=== PATIENT | female | born 1985 | race Caucasian/White ===

== ENCOUNTER 2019-12-11 22:52 | Emergency (ER) | payer OTHER, SELFPAY ==
--- NOTE | ~2019-12-11 | XR_ITS ---
EXAMINATION: XR chest 2V DATE: 12/12/2019 01:49 INDICATION: Midline chest pain TECHNIQUE: PA and lateral views of the chest were obtained. COMPARISON: Chest radiograph dated 05/11/2016 FINDINGS: The lungs remain clear with no focal airspace opacities, pulmonary edema, pleural effusion or pneumot horax. The cardiomediastinal silhouette is normal. Visualized bones and soft tissues are unremarkable . IMPRESSION: 1. No acute cardiopulmonary disease. Reviewed, dictated and finalized at location A.
--- NOTE | ~2019-12-11 | CT_ITS ---
EXAMINATION: CT abdomen pelvis w con DATE: 12/12/2019 01:46 INDICATION: Severe epigastric pain TECHNIQUE: Computed tomography (CT) of the abdomen and pelvis was performed with 100 cc Omnipaque 350 intravenous contrast. The dose-length product was 552.89 mGy-cm. Automated exposure control and iter ative reconstruction technique were employed. COMPARISON: None. FINDINGS: Heart size is normal. No significant pleural or pericardial effusion. No significant vascul ar abnormality. There is questionable stranding along the inferior aspect of the gallbladder. No definite stones or g allbladder wall thickening. The liver, spleen, pancreas, adrenal glands and kidneys are unremarkable. Nonobstructive bowel gas pa ttern. Normal appendix. No evidence for diverticulitis. No free air or free fluid. No acute osseous a bnormality. IMPRESSION: 1. Possible subtle pericholecystic stranding/inflammation. No radiopaque stones. Consider further jazlyn luation with ultrasound as clinically warranted. Reviewed, dictated and finalized at location A. IMPRESSION: 1. Possible subtle pericholecystic stranding/inflammation. No radiopaque stones . Consider further evaluation with ultrasound as clinically warranted.
--- NOTE | 2019-12-11 22:55 | ECG_ITS ---
Measurements Intervals [place] Rate: 98 P: 44 WY: 172 QRS: 16 QRSD: 92 T: 61 QT: 362 QTc: 464 Interpretive Statements SINUS RHYTHM BASELINE ARTIFACT- I, II, III, AVF NORMAL ECG Electronically Signed On 12-12-2019 7:07:07 CDT by Chalino Hutton D.O.
--- NOTE | 2019-12-11 22:55 | ED.CHESTPAIN ---
HPI - Chest Pain General Chief Complaint: Chest Pain Stated Complaint: chest pain Time Seen by Provider: 12/11/19 22:54 Source: patient Mode of arrival: ambulatory Limitations: no limitations History of Present Illness HPI narrative: Patient is a 34-year-old female who presents for evaluation of epigastric pain. Patient reports onset of epigastric pain earlier this evening. Patient reports it is a sharp, pressure in the epigastrium with radiation to the middle back. Patient reports some mild right upper quadrant pain. She reports nausea without vomiting. Patient reports similar episode of pain earlier this week for which patient received a work-up at [facility] which was negative and patient was sent home. Patient with history of acid reflux attacks as a child, but states this been many years since she has had any problems. No diaphoresis or shortness of breath. No smoking history, no history of sudden cardiac in the family or history of PR at a young age. Related Data Allergies Allergy/AdvReac Type Severity Reaction Status Date / Time No Known Allergies Allergy Unverified 05/11/16 08:41 Review of Systems Review of Systems: Narrative: CONSTITUTIONAL: Denies fever, chills, or sweats. CARDIOVASCULAR: Reports chest pain, denies palpitations RESPIRATORY: Denies cough or dyspnea. GASTROINTESTINAL: Reports epigastric pain, nausea and vomiting GENITOURINARY: Denies dysuria or hematuria. SKIN: Denies rash or itching. MUSCULOSKELETAL: Denies back pain, joint pain, or myalgia. NEUROLOGIC: Denies headache, numbness, or weakness. [facility] Past Medical History Medical History (Updated 12/12/19 @ 02:44 by Simran Chapa MD) Acid reflux Surgical History Surgical History (Updated 12/11/19 @ 23:09 by Simran Chapa MD) No pertinent past surgical history Social History Social History (Updated 12/11/19 @ 23:09 by Simran Chapa MD) Smoking status: Never smoker Alcohol intake: never Substance use: never Gender identity (if verbalized by the patient): Female Exam Narrative: Exam Narrative: GENERAL: Awake, alert, conversant, tearful, uncomfortable appearing HEAD: Normocephalic, atraumatic. EYES: PERRLA and EOMI. ENT: Nares clear, no rhinorrhea or epistaxis. Mucous membranes moist. NECK: Supple. CHEST: No respiratory distress, breathing even and non labored HEART: Tachycardic rate, sinus rhythm ABDOMEN:Non distended, tender in the epigastrium, no rebound, no guarding, mild right upper quadrant tenderness EXTREMITIES: Normal range of motion. No edema. SKIN: Warm, dry, no rash. NEURO:No focal deficits. Alert and oriented x3 Course Vital Signs Vital signs: Vital Signs Temperature 36.7 C 12/11/19 22:58 Pulse Rate 100 12/11/19 22:58 Respiratory Rate 16 12/11/19 22:58 Blood Pressure 133/97 H 12/11/19 22:58 Pulse Oximetry 100 12/11/19 22:58 Temperature 36.7 C 12/11/19 22:58 Pulse Rate 100 12/11/19 22:58 Respiratory Rate 16 12/11/19 22:58 Blood Pressure 133/97 H 12/11/19 22:58 Pulse Oximetry 100 12/11/19 22:58 MDM - Chest Pain MDM Narrative Medical decision making narrative: Patient presented to the emergency department for evaluation of recurrent epigastric pain. At the time of initial assessment, pain is reproducible in the epigastrium, mild right upper quadrant pain. Laboratory results show no severe leukocytosis, mild elevation in AST without hyperbilirubinemia or elevation in alkaline phosphatase. Patient declined morphine, symptoms resolved with a GI cocktail. CT scan with possible concern for gallbladder etiology, there does not appear to be signs of acute cholecystitis, no stranding or evidence of obstructive process on imaging. I explained to patient that she may want to pursue consultation with general surgery for possible gallbladder removal, symptoms may be related to biliary colic. Patient was advised to return should her symptoms
[2019-12-11 22:58] VITALS: BP 133/97; PULSE 100; RESP 16; TEMP 36.7; O2SAT 100
[2019-12-11 23:12] LABS: Basophils Percent Auto 0.3 % (0.2-1.2); Eosinophils Absolute Auto 0.1 K/mm3 (0-0.3); Eosinophils Percent Auto 1.2 % (0-4.4); Hematocrit 41.4 % (37.0-47.0); Hemoglobin 14.1 g/dL (12.0-15.0); Immature Granulocyte Absolute 0.01 K/mm3 (0.00-0.031); Immature Granulocyte Percent A 0.1 % (0-0.5); Lymphocytes Absolute Auto 3.84 K/mm3 (0.9-3.2); Lymphocytes Percent Auto 51.5 % (18.3-44.2); Mean Corpuscular HGB Conc 34.1 g/dl (32-36); Mean Corpuscular Hemoglobin 32.1 pg (26-34); Mean Corpuscular Volume 94.3 fl (80-100); Mean Platelet Volume 9.6 fl (7.4-10.4); Monocytes Absolute Auto 0.4 K/mm3 (0.1-0.6); Monocytes Percent Auto 5.5 % (2.6-8.5); Neutrophils Absolute Auto 3.1 K/mm3 (1.3-6.7); Neutrophils Percent Auto 41.4 % (45.5-73.1); Platelet Count Result 279 k/mm3 (150-375); Red Blood Count 4.39 M/mm3 (4.2-5.4); Red Cell Distribution Width 12.2 % (11.5-14.5); White Blood Count 7.5 K/mm3 (4.5-10.0)
[2019-12-11 23:26] LABS: Alanine Aminotransferase 27 U/L (4-35); Alkaline Phosphatase 58 U/L (38-126); Aspartate Amino Transferase 48 U/L (14-36); Bilirubin,Total 0.9 mg/dL (0.2-1.3); Blood Urea Nitrogen 14 mg/dL (7-17); Calcium 9.2 mg/dL (8.4-10.2); Carbon Dioxide 24 mmol/L (22-30); Chloride 102 mmol/L (98-107); Estimated Glomerular Filt Rate > 60; Glucose 121 mg/dL (65-105); Lipase 274 U/L (23-300); Potassium 3.3 mmol/L (3.4-5.0); Prothrombin Time 13.1 Seconds (11.1-14.7); Sodium 136 mmol/L (137-145)
[2019-12-11 23:27] LABS: Partial Thromboplastin Time 23.8 SECONDS (22.3-36.8)
[2019-12-11 23:38] LABS: Troponin I < 0.012 ng/mL (0.000-0.034)
[2019-12-12] MEDS: BELLADONNA ALK/PHENOB ELIX 10 ML, MAG HYDROX/ALUMINUM HYD/SIMETH 30 ML, LIDOCAINE HCL 2... PO (00:04)
[2019-12-12] MEDS: ONDANSETRON HCL ODT 4 MG TABLET PO (03:03)
[2019-12-12 03:15] VITALS: BP 124/88; PULSE 91; RESP 20; O2SAT 100
== END 2019-12-12 03:15 | disposition home or self-care (01) ==
PROVIDERS: Emergency Provider Emergency Medicine; PCP Nurse Practitioner Psychiatric/Mental Health
DX: K80.50 Calculus of bile duct without cholangitis or cholecystitis without obstruction (principal); K21.9 Gastro-esophageal reflux disease without esophagitis
CPT/HCPCS: 36415; 71046; 74177; 80053; 81025; 83690; 84484; 85025; 85610; 85730; 93005; 99284; A9270; Q9967

== ENCOUNTER 2024-08-15 08:17 | Emergency (ER) | payer BC, SELFPAY ==
--- OUTSIDE RECORDS SUMMARY | 2024-08-15 08:22 | XMS_ITS | Encounter Summary ---
Author Organization [facility] Address [address] [place] [address] Care Team Providers Care Box Closing Machine Operator Name Role Phone Jael Thomas Primary Care Provider [phone] Madhuri Kohli PA-C Primary Care Provider [phone] Encounter Details Date Type Department Care Team (Late st Contact Info) Description 12/30/2019 Prep for Procedure [facility] [address] [place] [address] Galo Irene MD Social History Tobacco Use Types Packs/Day Years Used Date Smoking Tobacco: Never Smokeless Tobacco: Never Alcohol Use Standard Drinks/Week Comments Yes 0 (1 standard drink = 0.6 oz pur e alcohol) AUDIT-C Answer Date Recorded Frequency of Alcohol Consumption Monthly or less 01/28/2019 Average Number of Drinks Not on file 019 Frequency of Binge Drinking Not on file 01/01 PHQ-2 Answer Date Recorded PHQ-2 Score 0 07/24/2019 Education Answer Date Recorded What is the highest level of school you have completed or the highest degree you have received? Master's degree (e.g., MA, MS, Omar, MEd, SUPERVISOR [employer]SE, [employer]) 01/28/2019 Comments No Sex and Gender Information Value Date Recorded Sex Assigned at Female 01/28/2019 9:07 AM CDT Legal Sex Female 9:10 PM CDT Gender Identity Female 01/28/2019 9:07 AM CDT Sexual Orientation Straight 01/28/2019 9: 07 AM CDT Occupation Industry Job Start Date Job End Date stay at home mom Not on file Not on file Not on file COVID-19 Exposure Response Date Recorded In the last month, have you been in contact with someone who was confirmed or suspected to have Coronavirus / COVID-19? No / Unsure 12/30/2019 4:21 PM CDT documented as of this encounter Plan of Treatment Not on file documented as of this encounter Visit Diagnoses Not on filedocumented in this encounter Additional Health Concerns Infection Onset Date Last Indicated Resolved Time COVID-19 Rule Out 01/03/2020 01/03/2020 01/04/2020 11:43 PM CDT COVID-19 Rule Out 09/10/2020 09/10/2020 09/10/2020 12:36 PM TITLE CAMERA OPERATOR COVID-19 Rule Out 09/10/2020 09/10/2020 09/10/2020 12:37 PM TITLE CAMERA OPERATOR COVID-19 Rule Out 09/10/2020 09/10/2020 09/11/2020 2:10 PM TITLE CAMERA OPERATOR documented as of this encounter Care Teams Box Closing Machine Operator Relationship Specialty Start Date End Date Jael Thomas APNP [id number] [address] PCP - General Nurse Practitioner Family 01/28/19 807/25 Madhuri Kohli PA-C [address] [address] PCP - General PHYSICIAN DOCTOR OF DENTAL SURGERY 02/21/23 documented as of this encounter
--- OUTSIDE RECORDS SUMMARY | 2024-08-15 08:22 | XMS_ITS | Clinical Summary ---
Author Organization [facility] Address [facility] [place] [address] Care Team Providers Care Chemist Enzymes Name Role Phone Madhuri Kohli PA-C Primary Care Provider [phone] Allergies No known active allergies Medications nabumetone (RELAFEN) 500 MG tabletIndicatio ns:Bilateral plantar fasciitis Take 1 tablet (500 mg total) by mouth 2 (two) times daily. 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 Overview (11/23/2020): Overview: Urine Positive GBS 06/2014 Urine Positive GBS 06/2014 Comments Yes Resolved Problems Problem Noted Date Diagnosed Date Resolved Date Skin rash 01/29/2021 02/17/2022 Encounters Date Type Department Care Team Description 05/19/2024 Scan [facility] Scanned, [facility] from Last 3 Months Immunizations Name Administration Dates Next Due COVID-19 Vaccine (Generic) 11/23/2020(Deferred: Patient Refused) Flucelvax 6 Months+ (Prefill ed Syringe) 04/02/2020 Influenza Adult (Generic) 06/14/2022,04/02/2020, 08/31/2014 Tdap (Generic) 11/17/2022,12/01/2014 Family History Medical History Relation Comments Diabetes Father Hypertension Father Arthritis Mother Thyroid Sister 1 blood clots Sister 1 blood clots Sister 2 Relation Status Comments Father Alive Mother Alive Sister 1 Alive Sister 2 Alive Social History Tobacco Use Types Packs/Day Years Used Date Smoking Tobacco: Never Passive Smoke Exposure: Past Smokeless Tobacco: Never Tobacco Cessation:Counseling Given: No Alcohol Use Standard Drinks/Week Comments Not Currently 0 (1 standard drink = 0.6 oz pur e alcohol) AUDIT-C Answer Date Recorded Frequency of Alcohol Consumption Not on file 09/03/2020 Q2: How many drinks containi ng alcohol do you have on a typical day when you are drinking? 1 or 2 09/03/2020 Frequency of Binge Drinking Not on file 10/2020 PHQ-2 Answer Date Recorded Patient Health Questionnaire-2 Score 0 08/28/2023 Education Answer Date Recorded What is the highest level of school you have completed or the highest degree you have received? 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 on file Not on file Last Filed Vital Signs Vital Sign Reading Time Taken Comments Blood Pressure 139/93 09/29/2023 11:15 AM CDT Pulse 94 09/29/2023 11:10 AM CDT Temperature 36.3 C (97.3 F) 09/29/2023 11:10 AM CDT Respiratory Rate 16 09/29/2023 11:10 AM CDT Oxygen Saturation 99% 09/29/2023 11:10 AM CDT Inhaled Oxygen Concentration - - Weight 79.5 kg (175 lb 3.2 oz) 09/29/2023 11:10 AM CDT Height 160.7 cm (5' 3.25 ) 09/29/2023 11:10 AM C DT Body Mass Index 30.79 09/29/2023 11:10 AM CDT Plan of Treatment Health Maintenance Due Date Last Done Comments Hepatitis C 2005 Hepatitis B Vaccines (1 of 3 - 19+ 3-dose series) 2006 Annual Physical 11/23/2021 11/23/2020, 07/24/2019 COVID-19 Vaccine ( - season) 2024 Influenza Adult (#1) 2024 06/14/2022, 04/02/2020, 04/02/2020, Additional history exists PHQ-2 (Physician [place]) 07/03/2024 08/28/2023 PHQ-2 (Physician [place]) 08/28/2024 08/28/2023 Cervical Cancer Screening Pap Smear (Age 30 to 64) Every 3 Years 06/14/2025 06/14/2022, 11/23/2020, 06/04/2014 Cervical Cancer Screening Pap with HPV Testing (Age 30 to 64) Every 5 Years 06/14/2027 06/14/2022, 11/23/2020, 06/04/2014 Cervical Cancer Screening with HPV 06/14/2027 DTaP, Tdap and Td Vaccines (3 - Td or Tdap) 11/17/2032 11/17/2022, 12/01/2014 RSV Immunization or 60+ Years (1 - 1-dose 75+ series) 2062 HPV Vaccines Aged Out No longer eligi ble based on patient's age to complete this topic Meningococcal B Vaccine Aged Out No l onger eligible based on patient's age to complete this topic Meningococcal Vaccine Aged Out No aníbal ignacio eligible based on patient's age to complete this topic Pneumococcal Vaccine: Pediatrics (0 to 5 Years) and At-Risk Patients (6 to 64 Years) Aged Out No longer eligible based on patient's age to complete this topic RSV Immunizations Under 20 Months Aged Out No longer eligible based on patient's age to complete this topic Procedures Procedure Name Priority Date/Time Associated Diagnosis Comments THINPREP PAP W AGE BASED SCREENING PROTOCOLS Routine 11/23/2020 11:57 AM CDT Cervical cancer screening from Last 3 Months or Most Recently Relevant to Health Maintenance Results * THINPREP PAP W AGE BASED SCREENING ([facility] ONLY) (11/23/2020 11:57 AM CDT) Comment: [facility] Comment: This order for age-based cervical cancer and STI screening follows ACOG guidelines(PB 168, 140, BMJ547). See individual assays for performing site location. CLINICAL INFORMATION: 7 or more years since last Pap [facility] Clinical Information: INFORMATION NOT PROVIDED [facility] Date of Last Pap INFORMATION NOT PROVIDED [facility] Previous Biopsy? INFORMATION NOT PROVIDED [facility] SOURCE (QST) [facility] STATEMENT OF ADEQUACY: [facility] Comment: Satisfactory for evaluation. Endocervical/transformation zone component present. Age and/or menstrual status not provided PAP INTERPRETATION/RES ULTS Negative for intraepithelial lesion or malignancy. [facility] COMMENT: This Pap test has been evaluated with computer assisted technology. [facility] COMPRESSOR STATION OPERATOR [facility] Comment: MLO, CT(ASCP) CT screening location: [place] [address] [place] [address] REVIEW COMPRESSOR STATION OPERATOR: [facility] Comment: MEF, CT(ASCP) CT screening location: [place] [address] [place] [address] COMMENT: [facility] Comment: EXPLANATORY NOTE: The Pap is a screening test for cervical cancer. It is not a diagnostic test and is subject to false negative and false positive results. It is most reliable when a satisfactory sample, regularly obtained, is submitted with relevant clinical findings and history, and when the Pap result is evaluated along with historic and current clinical information. HPV MRNA E6/E7 Not Detected Not Detected [facility] Comment: Methodology: Radio Officer-Mediated Amplification This assay detects E6/E7 viral messenger RNA (mRNA) from 14 high-risk HPV types (16,18,31,33,35,39,45,51,52,56,58,59,66,68). The analytical performance characteristics of this assay have been determined by [facility]. The modifications have not been cleared or approved by the FDA. This assay has been validated pursuant to the CLIA regulations and is used for clinical purposes. For additional information, please refer to http://education.Avotronics Powertrain/faq/OXE044y0 (This link if provided for information/ educational purposes only.) 11/23/2020 11:5 7 AM CDT 11/24/2020 12:53 AM CDT Carmela MONTES PATHOLOGY/CYTOLOGY ORDERABLE S Final Result [facility] [address] [phone] [facility] [address] [place] [address] from Last 3 Months or Most Recently Relevant to Health Maintenance Insurance [facility] Care Teams Chemist Enzymes Relationship Specialty Start Date End Date Madhuri Kohli PA-C [address] [facility] [address] [place] [address] PCP - General PHYSICIAN FOLDER MACHINE ADJUSTER 02/21/23
--- OUTSIDE RECORDS SUMMARY | 2024-08-15 08:22 | XMS_ITS | Encounter Summary ---
Author Organization [facility] Address [address] [place] [address] Care Team Providers Care Telephoto Installer Name Role Phone Jael Thomas Primary Care Provider [phone] Madhuri Kohli PA-C Primary Care Provider [phone] Encounter Details Date Type Department Care Team (Late st Contact Info) Description 12/30/2019 Prep for Procedure [facility] [address] [place] [address] [place] [address] [facility] [address] [place] [address] Social History Tobacco Use Types Packs/Day Years [...] Master's degree (e.g., MA, MS, Omar, MEd, FLOOR REPRESENTATIVE, [employer]) 01/28/2019 Comments No Sex and Gender [...] on file documented as of this encounter Results * PRE-SURGICAL/PRE-PROCEDURE CORONAVIRUS (COVID 19) (01/03/2020 9:07 AM CDT) CORONAVIRUS SARS COV 2 PCR (RESP) NOT DETECTED NOT DETECTED 01/04/2020 11:43 PM CDT [facility] Comment: A Not Detected (negative) test result for this test means that SARS- CoV-2 RNA was not present in the specimen above the limit of detection. A negative result does not rule out the possibility of COVID-19 and should not be used as the sole basis for treatment or patient management decisions. If COVID-19 is still suspected, based on exposure history together with other clinical findings, re-testing should be considered in consultation with public health authorities. Laboratory test results should always be considered in the context of clinical observations and epidemiological data in making a final diagnosis and patient management decisions. Please review the Fact Sheets and FDA authorized labeling available for health care providers and patients using the following websites: https://www.DocRun.com/home/Covid-19/HCP/NAAT/fact-sheet2 https://www.DocRun.Shipwire/home/Covid-19/Patients/NAAT/ fact-sheet2 This test has been authorized by the FDA under an Emergency Use Authorization (EUA) for use by authorized laboratories. Due to the current public health emergency, [facility] is receiving a high volume of samples from a wide variety of swabs and media for COVID-19 testing. In order to serve patients during this public health crisis, samples from appropriate clinical sources are being tested. Negative test results derived from specimens received in non-commercially manufactured viral collection and transport media, or in media and sample collection kits not yet authorized by FDA for COVID-19 testing should be cautiously evaluated and the patient potentially subjected to extra precautions such as additional clinical monitoring, including collection of an additional specimen. Methodology: Nucleic Acid Amplification Test (NAAT) includes PCR or TMA Additional information about COVID-19 can be found at the [facility] [facility] website: www.[employer].Shipwire/Covid19. Test performed at [facility] [place] [address] [place] [address] Director: IRENE RESTREPO DO,MPH NASOPHARYNGEAL SWAB / Unknown 01/03/2020 9:07 AM CDT us Sina Silveira MD MICROBIOLOGY - GENERAL ORDERABLES Final Result [facility] [id number] [place] [address], documented in this encounter Visit Diagnoses Diagnosis Pre-op testing- Primary Preoperative examination, unspecified documented in this encounter Additional Health Concerns Infection Onset Date Last Indicated Resolved Time COVID-19 Rule Out 01/03/2020 01/03/2020 01/04/2020 11:43 PM CDT COVID-19 Rule Out 09/10/2020 09/10/2020 09/10/2020 12:36 PM ARCHITECTURE INTERN COVID-19 Rule Out 09/10/2020 09/10/2020 09/10/2020 12:37 PM ARCHITECTURE INTERN COVID-19 Rule Out 09/10/2020 09/10/2020 09/11/2020 2:10 PM ARCHITECTURE INTERN documented as of this encounter Care Teams Telephoto Installer Relationship Specialty Start Date End Date Jael Thomas APNP [address] [address] PCP - General Nurse Practitioner Family 01/28/1902/01 Madhuri Kohli PA-C [address] [address] PCP - General PHYSICIAN DIAMOND ASSORTER 02/21/23 documented as of this encounter
--- OUTSIDE RECORDS SUMMARY | 2024-08-15 08:23 | XMS_ITS | Encounter Summary ---
Author Organization [facility] Address [address] [place] [address] Care Team Providers Care Marking Machine Tender Name Role Phone Jael ThomasNP Primary Care Provider [phone] Madhuri KohliC Primary Care Provider [phone] Encounter Details Date Type Department Care Team (Late st Contact Info) Description 11/27/2020 [employer] Message Enc [facility] Family & Internal Medicine [address] [address] Martina Morris, ASPNET DEVELOPER RE: Question Social History Tobacco Use Types Packs/Day Years [...] on file 10/2020 PHQ-2 Answer Date Recorded PHQ-2 Score - If the patient scores above 3, please move on to questions 3-9 0 09/03/2020 Education Answer Date Recorded What is the highest level of school you have completed or the highest degree you have received? Master's degree (e.g., MA, MS, Omar, MEd, REHAB CARE ASSISTANT, [employer]) 01/28/2019 Comments No Sex and Gender [...] have Coronavirus / COVID-19? No / Unsure 11/23/2020 8:54 AM CDT documented as of this encounter Plan of Treatment Not on file documented as of this encounter Visit Diagnoses Not on filedocumented in this encounter Care Teams Marking Machine Tender Relationship Specialty Start Date End Date Jael Thomas APNP [address] [address] PCP - General Nurse Practitioner Family 01/28/19 807/25 Madhuri Kohli PA-C [address] [facility] [address] [place] [address] PCP - General PHYSICIAN MACHINE STRIPER 02/21/23 documented as of this encounter
--- OUTSIDE RECORDS SUMMARY | 2024-08-15 08:23 | XMS_ITS | Referral Summary ---
Author Organization [facility] Address [address] [place] [id number] Care Team Providers Care Mailroom Courier Name Role Phone Jael Thomas NP Primary Care Provider Encounters Date Type Department Care Team Description 07/01/2024 10:00 AM DISPATCHER REFINERY Office Visit [facility] Maternal- Medicine [address] [place] [address] 7th Floor [address] [place] [address] Encounter for routine follow-up (Primary Dx) 06/13/[address] [address] 06/12/2024 10:20 AM [place] [address] Genetic testing 06/11/2024 Orders Only [facility] Pediatric Genetics [facility] 2nd [place] [address] [place] [address] Lisette Singh CGC Genetic testing (Primary Dx) 06/06/[address] [address] 06/04/[address] [address] 06/04/2024 9:40 AM DISPATCHER REFINERY Office Visit [facility] Maternal- Medicine [address] [place] [address] 7th Floor [address] [place] [phone] Delivery of by section (Primary Dx) 05/29/2024 Encounter [facility] [address] [place] [address] 05/21/2024 Documentation [facility] Anesthesia [address] [place] [address] Margo Desai MD 05/21/2024 Encounter [facility] [address] [place] [address] 05/20/2024 Encounter [facility] [address] [place] [address] 05/20/2024 6:08 AM DISPATCHER REFINERY - 05/20/2024 8:00 AM DISPATCHER REFINERY Hospital Encounter [address] [address] Joceline Zheng MD Discharge Disposition: Discharge to home or self care 05/20/2024 Nurse Triage [address] [address] Christie Armijo RN 05/17/2024 10:30 AM DISPATCHER REFINERY - 05/19/2024 1:56 PM DISPATCHER REFINERY Hospital Encounter [address] [address] Sarah Rider MD Rampersad, Roxane Marie, MD Meka, Raina Advani, MD Supervision of other high risk , antepartum (Primary Dx) Discharge Disposition: Discharge to home or self care 05/17/2024 Orders Only [address] [address] Stacie Tsang MD 05/17/2024 4:41 PM DISPATCHER REFINERY Anesthesia Event [address] [address] Esther Rayo MD Candelaria, Patrick Garrett, MD 05/17/2024 7:00 PM DISPATCHER REFINERY - 05/17/2024 9:30 PM DISPATCHER REFINERY Surgery [place] [phone] Stacie Tsang MD REPEAT SECTION 05/17/2024 9:30 AM DISPATCHER REFINERY Clinical Support [facility] Obstetrics and Gynecology [facility] 7th [place] [address] PAC (premature atrial contraction) (Primary Dx); Maternal care for suspected chromosomal abnormality in fetus, fetus 1 from Last 3 Months Allergies No known active allergies Medications FYT50-zmhs cb,im-sswla-lzg-d dewitt (PNV OB+DHA) 27-1-50-250 mg combo pack 5 Active norethindrone (MICRONOR) 0.35 mg tabletIndications : Contraception Take 1 tablet (0.35 mg total) by mouth daily 84 tablet 3 4 025 Active Additional Information Patient not taking.Reported on 07/01/2024 Active Problems Patient Care Coordination No te Formatting of this note is d ifferent from the original. 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 No signs/symptoms of infection. # Heme: QBL 710 mL. Hemodynamically stable. Pre-op hgb 12.5. POD1 hgb 11.4 # CV/Pulm: Gestational hypertension - Blood pressures well controlled on no meds. Asymptomatic, denies DEWITT/RUQ pain/vision changes. CBC/CMP WNL, UPC 0.14. Enrolled in remote blood pressure monitoring. # GI/: Tolerating PO. Voiding spontaneously. # Pain: Controlled with above regimen. # MOC: Progestin-only pills. # MOF: . Urine drug screen not indicated. Patient informed of results: N/A. # Post DVT prophylaxis: The patient has the following MAJOR risk factors none and the following MINOR risk factors BMI 30-39, delivery, age >/= 35, and parity >/=3. enoxaparin 40 mg daily ordered for VTE prophylaxis. # Disposition: Follow up task sent to [facility] scheduling pool for appointments in 2 and 6 weeks. They are enrolled in remote blood pressure monitoring for their BP check. Desires discharge home tomorrow. Service Coverage These phones are service phones and carried 23/01 in house: R1 (first call) [phone] R1 alt (second call) [phone] R4 (Chief) [phone] Supervision of other high risk , antepa rtum 04/30/2024 History of gestational hypertension 10/29/2023 Overview (12/15/2023): induced hypertension recurs in approximately 22 percent of subsequent pregnancies (gestational hypertension in 15% and preeclampsia in 7%. Recommendations: [x] Baseline CMP, CBC, and urine p:c - already completed Assessment & Plan (10/29/2023 1:20 AM CDT): -Baseline pre-eclampsia labs ordered -Recommend initiation of ASA 81mg at 12 weeks History of 2 sections/Short i nterval 10/29/2023 Assessment & Plan (10/29/2023 1:24 AM CDT): -Repeat 12/2022 for gestational HTN and history of x1 -Recommend repeat Postprandial epigastric pain 10/13/2022 Resolved Problems Problem Noted Date Diagnosed Date Resolved Date Polyhydramnios in third trim ramy, not applicable or unspecified fetus 05/07/2024 06/04/20 Overview (05/14/2024): Mild poly- stable 05/14/2024 28cm S/p counseling Pt knows to present immediately with SROM Labor precautions reviewed BPP in 1 week Assessment & Plan (05/14/2024 10:43 AM DISPATCHER REFINERY): Again reviewed risks of polyhydramnios include contractions, SROM, malposition or umbilical cord prolapse. Assessment & Plan (05/07/2024 8:56 AM DISPATCHER REFINERY): Stable 05/07/2024 Feeling exhausted 04/02/2024 06/04/2024 Overview (04/25/2024): Continues to feel exhausted. She was seen in [facility] with a negative workup on 02/25. Reports at times feeling winded with daily activities like laundry and dishes Continues on po iron 04/02/2024- CBC, CMP, thyroid labs and BNP ordered Hospital precautions reviewed for worsening symptoms Improved after eating regular meals CTM closely PAC (premature atrial contraction) 04/02/2024 06/04/2024 Overview (04/30/2024): Rare PACs noted on US 04/02/2024 Counseled that most are benign and resolve on their own. 1-2% risk of developing arrhythmia. Peds cards aware. Continue weekly testing Anemia affecting in third trimester 03/14/2006/04/2024 Overview (04/08/2024): Lab Results Component Value Date WBC 9.7 02/26/2024 HGB 10.6 (L) 02/26/2024 HCT 33.5 (L) 02/26/2024 MCV 90.5 02/26/2024 LABPLAT 273 02/26/2024 Ferritin 17- started on PO iron every other day [x] Repeat CBC and CMP- CMP WNL, H&H: 11.5/36.8 Maternal care for suspected chromosomal abnormality in fetus, fetus 1 12/06/2023 06/04/2024 Overview (04/30/2024): Ms. Sofy Rudolph has a high risk of Down Syndrome on NIPT, with a risk of 95%. 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 Previously counseled Summary of Recommendations: [x] Diagnostic testing plan: amniocentesis with T21 [x] Genetic Counseling referral 12/15/23 [x] [facility] referral - 04/16 [x] [facility] Genetics - Down Syndrome Clinic - 04/02 [x] echocardiogram to be scheduled - 02/12 (AV Canal Defect) [x] Serial growth scans beginning at 24 weeks [x] testing- now 2x/weekly for maternal benefits 2/2 decreased movement Supervision of high-risk pre gnancy, second trimester 12/06/2023 06/04/2024 Overview (05/14/2024): [facility] RN: Fariba Murry [x] Full [facility] care [x] Blue Team Referring Provider: Mary Bush [phone] [] [employer] or Medicare Insurance [x] Dating Criteria: US 10/24/23 with BRITTA 06/02/24 [x] Labs: Rh [A+], Ab [negative], Rubella [Equivocal], HIV [non- reactive], HepBSAg [non-reactive], RPR [non-reactive], Hep C [non-reactive], Varicella [positive], GC/CT [negative/negative] [x] Aneuploidy: NIPT: high risk for Trisomy 21 [x] Carrier Screening: positive for Familial Hyperinsulinism, ABCC8-Related, Maple Syrup Urine Disease, Type 1B and Steroid-Resistant Nephrotic Syndrome. [x] CBC/Hgb: 12.9/41.5/plt 307 [] Early 1hr GTT (if indicated) [x] UCx: 10/24/23: no growth [x] Pap: 10/24/23: NILM; HPV negative [] Flu Shot (Mar-Jun): counseled for next visit [] COVID: counseled on risk of maternal and and pt declines [] LD ASA (if indicated) [] EPDS [ ]; PNBHS referral (if indicated) 2nd Tri Labs: [x] Anatomy ultrasound: CHD: Complete/balanced AV canal [x] CBC/1hr gtt at 24-28wks: 3 hr GTT: 77/165/153/78 H&H: 11/35.2 [x] Tdap (27-36wks): 03/14/2024 3rd Tri Labs: [x] CBC/HIV/RPR: 11.5/36.8, RPR [NR], HIV [neg] [x] GBS: negative [x] testinx/weekly [x] RSV : 04/08 ordered for [facility] Counseling [x] MOD: Repeat C/S- scheduled for 39 weeks [x] Hibiclens provided [x] Place of delivery: [facility] [x] Blood Products: willing to accept [] Consents signed: upon admission [] Stop ASA [x] MOC: s/p larc counseling, bedsider link provided 04/30/2024 [x] Method of feeding: breast [x] Refrigerating Machine Operator: [x] PP Depression Discussed: AMA (advanced maternal age) multigravida 35+, second trimester 12/06/2023 06/04/2024 Overview (01/18/2024): Previously counseled Plan: [x] ASA 81 mg daily Nausea/vomiting in 10/29/2023 06/04/2024 Assessment & Plan (10/29/2023 1:26 AM CDT): -Reviewed recommendations for management of nausea/emesis in . Advised to eat multiple small meals throughout the day, avoid spicy/greasy food, sit upright for 1-2 hours after eating, utilize BRAT diet, use Unisom/B6 for prevention, and try refugio/peppermint. 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 There is no medical reason to do testing or even testing after delivery. It's similar to a person who has two copies of the mild Camacho variant for galactosemia. It's only relevant knowledge for their children as adults when they are thinking of having their own children. 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 Expectant management: [x] Mode of delivery: Repeat [] For C/S bottle of CHG 4% and hand out provided @ 36wks Teaching: [x] 1st visit [] 28-30 week [] 36 week Assessment & Plan (10/29/2023 1:20 AM CDT): -TVUS completed for dating and viability completed today. BRITTA 06/02/2024 based on ultrasound today due to approximate LMP. - labs ordered -Pap: Remote history of abnormal. Last Pap NILM HR HPV negative 08/2018, repeated today. Reports completion of HPV vaccine. -GC/CT collected -Reviewed criteria for ASA 81mg: Gestational HTN in G2, start at 12 weeks -Flu and Covid vaccination recommendations reviewed, received fall 2022 flu shot, unvaccinated for Covid-19 -Genetic testing options reviewed, previously completed carrier screening, desires Panorama -Anatomy US ordered -First trimester education today Labor and delivery, indication for care 01/12/2023 02/23/2023 care following delivery 01/12/2023 02/23/2023 Overview (01/15/2023): # ID: Afebrile. No signs/symptoms of infection. # Heme: EBL 600 mL. No symptoms acute blood loss anemia. POD# 1 Hgb 9.9, ordered for PO iron supplementation. # CV/Pulm: Gestational hypertension - Blood pressures well controlled on no meds. Asymptomatic, denies DEWITT/RUQ pain/vision changes. CBC/CMP WNL, UPC 0.125. 01/15 1 MR, otherwise normotensive. Enrolled in home BP monitoring # GI/: Tolerating PO. Voiding spontaneously. # Pain: Controlled with above regimen. Reports some R side breakthrough pain w/ coughing - lidocaine patches ordered. 01/15 pain control has improved. # MOC: Progestin-only pills. # MOF: . Urine drug screen not indicated. Patient informed of results: N/A. # Post DVT prophylaxis: The patient has the following MAJOR risk factors none and the following MINOR risk factors BMI 30-39 and age >/= 35. enoxaparin 40 mg daily ordered for VTE prophylaxis. # Disposition: Follow up task not sent. Desires discharge home today.. Multigravida of advanced mat ernal age in second trimester 09/23/2022 11/17/2022 02/23/2023 Previous delivery, antepartum condition or complication 09/23/2022 02/23/2023 Gallstones 12/24/2019 10/29/2023 Overview (10/13/2022): Added automatically from request for surgery [id number] Encounter for maternal care for low transverse scar from previous delivery 12/25/2018 02/23/2023 Overview (10/13/2022): Added automatically from request for surgery [id number] Added automatically from request for surgery [id number] Added automatically from request for surgery [id number] Supervision of other normal , antepartum 06/24/2014 02/23/2023 Overview (01/05/2023): -AMA @ del -H/o pLTCS d/t NRFS-- planning repeat -saw JOSE, spontaneous ! 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 There is no medical reason to do testing or even testing after delivery. It's similar to a person who has two copies of the mild Camacho variant for galactosemia. It's only relevant knowledge for their children as adults when they are thinking of having their own children. -vitamin D supplementation 800- 1000 international units/day rLTCS sched 01/19/23 0930arr/1130start, pt aware 3rd tri HIV ordered with preop labs [x] Initial BMI: 34.05 [x] Labs: completed [x] Genetic Screening: nml cfDNA [x] Baby ASA: AMA start @12 weeks [x] 1hr GCT at 24-28wks: 157, nml 3 hour gtt [x] Tdap (27-36wks): 11/17/2022 AH [x] Flu Shot:06/14/2022 au [x] COVID vaccine: declines [] Rhogam (if Rh neg): n/a A+ [x] GBS at 36 wks: Negative [x] [x] control method: POPs [x] 39 weeks discussion of IOL vs. Expectant management: 39wk c/s [x] Mode of delivery: rLTCS [x] For C/S bottle of CHG 4% and hand out provided @ 36wks Girl Piper , ped in [place], [place] Teaching: [x] 1st visit [x] 28-30 week [x] 36 week GBS carrier 06/05/2014 02/23/2023 Overview (10/13/2022): Urine Positive GBS 06/2014 Overview: Urine Positive GBS 06/2014 Urine Positive GBS 06/2014 Immunizations Name Administration Dates Next Due Flucelvax Influenza Quad 04/02/2020 Influenza, Quadrivalent, Christina l Culture-based MDCK, Preservative Free, Antibiotic Free, Intramuscular 06/14/2022 Influenza, Trivalent, Cell Culture-based MDCK, Preservative Free, Antibiotic Free, Intramuscular 04/02/2020 Influenza, Trivalent, IM (MDV) 08/31/2014 Influenza, Unspecified 06/14/2022,04/02/2020 MMR 05/19/2024 Tdap 03/14/2024,11/17/2022,12/01/2014 Varicella 05/19/2024(Deferred: No longer n eeded) Social History Tobacco Use Types Packs/Day Years Used Date Smoking Tobacco: Never Smokeless Tobacco: Never Tobacco Cessation:Counseling Given: Not Answered Alcohol Use Standard Drinks/Week Comments Yes 0 (1 standard drink = 0.6 oz pur e alcohol) [facility] [employer] Answer Date Recorded In the past 12 months has th e electric, gas, oil, or water company threatened to shut off services in your home? No 05/18/2024 Social Connection and Isolat ion Panel [NHANES] Answer Date Recorded In a typical week, how many times do you talk on the phone with family, friends, or neighbors? More than three times a week 05/18/2024 How often do you get togethe r with friends or relatives? More than three times a week 05/18/2024 How often do you attend chur ch or yazidism services? Never 05/18/2024 Do you belong to any clubs o r organizations such as rastafarian groups, unions, fraternal or athletic groups, or school groups? No 05/18/2024 How often do you attend meet ings of the clubs or organizations you belong to? Never 05/18/2024 Are you , , di vorced, , never , or living with a partner? 05/18/2024 AUDIT-C Answer Date Recorded Q1: How often do you have a drink containing alcohol? Never 12/15/2023 Q2: How many drinks containi ng alcohol do you have on a typical day when you are drinking? Patient does not drink Q3: How often do you have si x or more drinks on one occasion? Never 12/15/2023 Overall Financial Resource Strain (CARDIA) Answe r Date Recorded How hard is it for you to pa y for the very basics like food, housing, medical care, and heating? Not hard at all 05/18/2024 Hunger Vital Sign Answer Date Recorded Within the past 12 months, y ou worried that your food would run out before you got the money to buy more. Never true 05/18/20 24 Within the past 12 months, t he food you bought just didn't last and you didn't have money to get more. Never true 05/18/2024 PRAPARE - Transportation Answer Date Re corded In the past 12 months, has l ack of transportation kept you from medical appointments or from getting medications? No 05/03 In the past 12 months, has l ack of transportation kept you from meetings, work, or from getting things needed for daily living? No 05/18/2024 Housing Stability Vital Sign Answer Elmo e Recorded In the last 12 months, was t here a time when you were not able to pay the mortgage or rent on time? No 01/13/2023 In the last 12 months, how many places have you lived? 1 01/13/2023 In the last 12 months, was t here a time when you did not have a steady place to sleep or slept in a chcf (including now)? No 01/13/2023 [place] Depression Scale Answer Date Recorded [place] Depression Scale Total 1 07/01/2024 The thought of harming myself has occurred to me . Never 07/01/2024 Housing Stability Vital Sign Answer Elmo e Recorded In the last 12 months, was t here a time when you were not able to pay the mortgage or rent on time? No 05/18/2024 In the past 12 months, how m any times have you moved where you were living? 0 05/18/2024 At any time in the [facility], were you homeless or living in a chcf (including now)? No 05/18/2024 Personal Safety Answer Date Recorded Have you ever been in or are you currently in a harmful physical or emotional relationship or is someone making you feel afraid or unsafe? Denies 05/20/2024 Education Answer Date Recorded What is the highest level of school you have completed or the highest degree you have received? Master's degree (e.g., MA, MS, Omar, MEd, [employer], [employer]) 10/24/2023 Comments No Sex and Gender Information Value Date Recorded Sex Assigned at Not on file Legal Sex Female 7:59 AM DISPATCHER REFINERY Gender Identity Not on file Sexual Orientation Not on file Occupation Industry Job Start Date Job End Date Stay at Home Mom Not on file Not on file Not on file Last Filed Vital Signs Vital Sign Reading Time Taken Comments Blood Pressure 129/86 07/01/2024 10:06 AM DISPATCHER REFINERY Pulse 76 07/01/2024 10:06 AM DISPATCHER REFINERY Temperature 36.4 C (97.5 F) 05/20/2024 6:15 AM DISPATCHER REFINERY Respiratory Rate 18 05/20/2024 6:15 AM DISPATCHER REFINERY Oxygen Saturation 98% 07/01/2024 10:06 AM DISPATCHER REFINERY Inhaled Oxygen Concentration - - Weight 81 kg (178 lb 9.6 oz) 07/01/2024 10:06 AM DISPATCHER REFINERY Height 160 cm (5' 3 ) 07/01/2024 10:06 AM DISPATCHER REFINERY Body Mass Index 31.64 07/01/2024 10:06 AM DISPATCHER REFINERY Plan of Treatment Not on file Procedures Procedure Name Priority Date/Time Associated Diagnosis Comments MISCELLANEOUS GENETICS LAB Routine 06/12/2024 10:17 AM DISPATCHER REFINERY Genetic testing CBC WITHOUT DIFFERENTIAL Routine 05/18/2024 5:53 AM DISPATCHER REFINERY SURGICAL PATHOLOGY Routine 05/17/2024 6: 57 PM DISPATCHER REFINERY ANESTHESIA CSE BLOCK Routine 05/17/2024 5:20 PM DISPATCHER REFINERY REPEAT SECTION 05/17/2024 4:42 PM DISPATCHER REFINERY Supervision of other high risk , antepartum Case Notes Scheduled c/s, terminal decel immediately after spinal placement, level 1 c/s called POCT URINALYSIS (CLINITEK) Routine 05/17/2024 1:20 PM DISPATCHER REFINERY PROTEIN / CREATININE RATIO, URINE, RANDOM Routine 05/17/2024 1:06 PM DISPATCHER REFINERY EGFR STAT 05/17/2024 12:29 PM DISPATCHER REFINERY TYPE AND SCREEN STAT 05/17/2024 12:29 PM DISPATCHER REFINERY COMPREHENSIVE METABOLIC PANEL STAT 05/17/2024 12:29 PM DISPATCHER REFINERY CBC WITHOUT DIFFERENTIAL STAT 05/17/2024 12:29 PM DISPATCHER REFINERY RPR STAT 05/17/2024 12:29 PM DISPATCHER REFINERY NONSTRESS TEST Routine 05/17/2024 10:30 AM DISPATCHER REFINERY PAC (premature atrial contraction) Maternal care for suspected chromosomal abnormality in fetus, fetus 1 HEPATITIS C ANTIBODY Routine 10/30/2023 7:03 AM CDT Encounter for supervision of elderly multigravida in first trimester, antepartum HIGH RISK HPV DNA DETECTION WITH GENOTYPING Routine 10/24/2023 10:12 AM CDT Supervision of other normal , antepartum from Last 3 Months or Most Recently Relevant to Health Maintenance Results * No charge, parental sample for rapid genome (orders in [employer] under Darnell Senci) - Miscellaneous Test (06/12/2024 10:17 AM DISPATCHER REFINERY) Test Name Parental sample for Rapid Genome Sequencing Result 1 See Comment [facility] Comment:Parental sample sent on 06/12/24; see Proband report once completed. Complete [id number] [facility] Miscellaneous 06/12/2024 10: 17 AM DISPATCHER REFINERY 06/12/2024 9:49 PM DISPATCHER REFINERY Narrative [facility] - 06/12/2024 9:49 PM DISPATCHER REFINERY Name of test to be performed:->No charge, parental sample for rapid genome (orders in [employer] under Darnell Senci) Specimen type/source->3-5mL in EDTA us Yvonne Swan MD LAB GENETIC TESTING Fi nal Result [facility] Department [place] [address] * (ABNORMAL) CBC without differential (05/18/2024 5:53 AM DISPATCHER REFINERY) WBC 12.3(H) 3.8 - 9.9 K/cumm Hgb 11.4(L) 11.9 - 15.5 g/dL [facility] Hct 35.9 35.6 - 45.5 % [facility] Plt 262 150 - 400 K/cumm [facility] MPV 10.0 9.1 - 12.3 fL [facility] RBC 3.84(L) 3.90 - 5.20 M/cumm [facility] MCV 93.5 81.3 - 96.4 fL [facility] MCH 29.7 27.1 - 33.3 pg [facility] MCHC 31.8(L) 32.3 - 35.7 g/dL [facility] RDW CV 15.8(H) 11.1 - 14.9 % [facility] RDW SD 53.9(H) 35.7 - 48.1 fL [facility] NRBC abs 0.00 0.00 - 0.01 K/cumm [facility] Blood 05/18/2024 5:53 AM DISPATCHER REFINERY 05/18/2024 6:23 AM DISPATCHER REFINERY us Stacie Tsang MD LAB BLOOD ORDERABLES Final Result [facility] Department [place] [address] * Surgical pathology (05/17/2024 6:57 PM DISPATCHER REFINERY) Placenta 05/17/2024 6:57 PM DISPATCHER REFINERY 05/20/2024 8:56 AM DISPATCHER REFINERY Narrative 05/23/2024 4:57 PM DISPATCHER REFINERY EPIC results best viewed via link to PDF [facility] [place] [address] Note to Patients: This report may contain a detailed description of human tissue sent by a health care provider to the laboratory for pathologic evaluation. The content of this report is essential for diagnosis and may provide important critical findings. This information may be unfamiliar to patients to review without a medical professional present. It is advised that the patient review this report in the presence of a health care provider who can answer questions and explain the details. 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 Elda Cowan M.D. Report Electronically Reviewed and Signed Out By Elda Cowan M.D. 05/23/2024 16:57:03 Bertrand Garcia.B.S. History: The patient is a 38-year-old woman presenting 37.5 weeks gestation with a high-risk for T21. Specimen(s) Received: A: Placenta, 37 weeks, 5 days Gross Description: Received in a single formalin filled container labeled with the patient's name and date of is a placenta with attached membranes and umbilical cord. The placental disc is ovoid and measures 15.2 x 13.1 cm. The three-vessel umbilical cord inserts at the edge of the placental disc, measures 15.5 cm in length by 0.7 cm in diameter, and shows no focal lesions. The marginally attached membranes are partially edematous, smooth, cai to pink purple and glistening. The placental weight after trimming is 450.1 g. The surface is smooth, purple blue and glistening and has no focal lesions. The maternal surface has intact cotyledons and shows no signs of compression. Serial sections through the maternal surface reveals a soft, spongiform, red purple cut surface (4.1 cm in thickness) and no focal lesions. Free-floating within the container is an additional segment of umbilical cord (15.2 cm in length by 0.9 cm in diameter). Labeled A1- membranes and umbilical cord; A2-A 4-placenta (A3-A4-one full-thickness section bisected). Jar 3. emg/05/21/2024 14:18 PA(s): Tammy Suazo, MS, PA (ASCP)CM By this signature, I attest that the above diagnosis is based upon my personal examination of the slides(and/or other material). Addenda/Procedures The performance characteristics of some immunohistochemical stains, fluorescence in-situ hybridization tests and immunophenotyping by flow cytometry cited in this report (if any) were determined by the Surgical Pathology and Flow Cytometry Departments at [facility] as part of an ongoing chief quality officer program and in compliance with federally mandated regulations drawn from the Clinical Laboratory Improvement Act of 1988 (CLIA '88). Some of these tests rely on the use of analyte specific reagents and are subject to specific labeling requirements by the US Food and Drug Administration. Such diagnostic tests may only be performed in a facility that is certified by the Department of Health and Human Services as a high complexity laboratory under CLIA '88. The FDA has determined that such clearance or approval is not necessary. This test is used for clinical purposes. It should not be regarded as investigational or for research. Nevertheless, federal rules concerning the medical use of analyte specific reagents require that the following disclaimer be attached to the report: This test was developed and its performance characteristics determined by the Surgical Pathology and Flow Cytometry Departments of [facility]. It has not been cleared or approved by the U. S. Food and Drug Administration. IMAGES AND SCANNED DOCUMENTS, IF INCLUDED, ONLY VIEWABLE IN PDF VERSION OF REPORT us Stacie Tsang MD LAB PATHOLOGY ORDERABLES Fi nal Result * CSE Block (05/17/2024 5:20 PM DISPATCHER REFINERY) John Rincon MD - 05/17/2024 5:20 PM DISPATCHER REFINERY John Chu MD 05/17/2024 5:21 PM CSE Block Patient location during procedure: OR Start time: 05/17/2024 4:47 PM End time: 05/17/2024 4:50 PM Reason for block: primary anesthetic Staffing: Supervising provider: Esther Rayo MD Placed by: Resident: John Chu MD Preprocedure Prep: Preprocedure checklist: patient identified, procedure contraindications assessed, procedure consent, surgical consent, IV checked, risks, benefits and alternatives discussed, monitors and equipment checked and timeout performed Patient position: sitting Procedure performed while patient: awake Monitoring: oximetry and blood pressure Prep solution: chlorhexidine/alcohol PPE: provider hat/mask, sterile gloves and sterile drape Skin infiltrated with lidocaine 1%: yes CSE: Approach: midline Location: L3-4 Number of attempts: 1 Epidural Needle: Injection technique: YULIYA saline Needle type: Tuohy Needle gauge: 17 G Needle length: 9 cm Loss of resistance: 7 cm Spinal Needle: Needle type: pencil-tip Needle gauge: 25 Needle insertion: through epidural needle and positive CSF aspiration Catheter: Catheter type: multi-orifice Catheter at skin depth: 12 Assessment: Sensory level - left: T4 Sensory level - right: T4 Esther Rayo MD ANESTHESIA ORDERABLES Final Result * (ABNORMAL) POCT urinalysis (Clinitek) (05/17/2024 1:20 PM DISPATCHER REFINERY) Color, ur, POC Yellow Yellow Clarity, UA, POC Clear Clear [facility] Glucose, ur, POC Negative Negative [facility] Bilirubin, ur, POC Negative Negative [facility] Ketones, ur, POC 1+(A) Negative [facility] Specific gravity, ur, POC 1.015 1.010 - 1.025 [facility] Blood, ur, POC Negative Negative [facility] pH, ur, POC 7.0 [facility] Comment: Interpretive Data Urine pH is affected by diet, medications, systemic acid-base disturbances, and renal tubular function. pH may affect urinary stone formation. For example, urine pH below 6.0 may help reduce the tendency for calcium phosphate stones and pH greater than 6.0 may reduce the tendency for uric acid stone formation. Source: ReCellular. Last Revised Date: 07-13-2017 Protein, ur, POC Negative Negative [facility] Urobilinogen, ur, POC 0.2 mg/dL mg/dL [facility] Nitrites, ur, POC Negative Negative [facility] Leukocyte esterase, ur, POC Negative Negative [facility] Urine 05/17/2024 1:20 PM DISPATCHER REFINERY 05/17/2024 1:20 PM DISPATCHER REFINERY Result [facility] Lulu Jenkins MD LAB POCT ORDERABLES - DEVICE Final Result Performing Organization Address [facility] de Phone Number [facility] Department [place] [address] * Protein / creatinine ratio, urine, random (05/17/2024 1:06 PM DISPATCHER REFINERY) Pathologist [facility] Protein, ur, quant 5.8 mg/dL Comment: Interpretive Data No reference range established. Current interpretive data was last revised 2018. Creatinine Ur 39.9 mg/dL [facility] Comment: Interpretive Data No reference range established. Current interpretive data was last revised 2018. Protein/creatinin e ratio 145.4 0.0 - 180.0 mg/g CR [facility] Urine 05/17/2024 1:06 PM DISPATCHER REFINERY 05/17/2024 1:27 PM DISPATCHER REFINERY Result [facility] Lulu Jenkins MD LAB URINE ORDERABLES F inal Result Performing Organization Address [facility] de Phone Number [facility] [place] [address] * eGFR (05/17/2024 12:29 PM DISPATCHER REFINERY) Pathologist [facility] eGFR >90 >=60 mL/min/1. 73 m2 Comment: Interpretive Data Reference Interval Normal >/= 90 mL/min/1.73m2 Mildly decreased* 60 - 89 mL/min/1.73m2 Mildly to moderately decreased 45 - 59 mL/min/1.73m2 Moderately to severely decreased 30 - 44 mL/min/1.73m2 Severely decreased 15 - 29 mL/min/1.73m2 Kidney Failure < 15 mL/min/1.73m2 *Relative to young adult level Estimated glomerular filtration rate is determined by the 2020 CKD-EPI equation recommended by the National Kidney Foundation (A Unifying Approach to GFR Estimation: Recommendations of the NKF-ASK Task Force on Reassessing the Inclusion of Race in Diagnosing Kidney Disease, JASN 202). The CKD-EPI equation should not be used for patients with unstable renal function and has not been validated in children and those over 70. Current interpretive data was last reviewed 2021. Blood 05/17/2024 12:2 9 PM DISPATCHER REFINERY 05/17/2024 12:43 PM DISPATCHER REFINERY Lulu Jenkins MD LAB BLOOD ORDERABLES F inal Result Performing Organization Address [facility]/ZIP Co de Phone Number [facility] Department [place] [address] * RPR Blood (05/17/2024 12:29 PM DISPATCHER REFINERY) Pathologist [facility] RPR Nonreactive Nonreactive Blood 05/17/2024 12:2 9 PM DISPATCHER REFINERY 05/17/2024 12:43 PM DISPATCHER REFINERY Lulu Jenkins MD LAB MICROBIOLOGY - GEN ERAL ORDERABLES Final Result Performing Organization Address [facility] de Phone Number [facility] Department [place] [address] * (ABNORMAL) CBC without differential (05/17/2024 12:29 PM DISPATCHER REFINERY) WBC 10.0(H) 3.8 - 9.9 K/cumm Hgb 12.5 11.9 - 15.5 g/dL [facility] Hct 38.8 35.6 - 45.5 % [facility] Plt 294 150 - 400 K/cumm [facility] MPV 9.8 9.1 - 12.3 fL [facility] RBC 4.26 3.90 - 5.20 M/cumm [facility] MCV 91.1 81.3 - 96.4 fL [facility] MCH 29.3 27.1 - 33.3 pg [facility] MCHC 32.2(L) 32.3 - 35.7 g/dL [facility] RDW CV 15.7(H) 11.1 - 14.9 % [facility] RDW SD 52.5(H) 35.7 - 48.1 fL [facility] NRBC abs 0.00 0.00 - 0.01 K/cumm [facility] Blood 05/17/2024 12:2 9 PM DISPATCHER REFINERY 05/17/2024 12:43 PM DISPATCHER REFINERY Lulu Jenkins MD LAB BLOOD ORDERABLES F inal Result Performing Organization Address [facility] Co de Phone Number [facility] [place] [address] * Type and screen (05/17/2024 12:29 PM DISPATCHER REFINERY) ABO Rh A Positive Butch, indirect Negative [facility] Blood 05/17/2024 12:2 9 PM DISPATCHER REFINERY 05/17/2024 12:57 PM DISPATCHER REFINERY Narrative [facility] - 05/17/2024 1:47 PM DISPATCHER REFINERY Has the patient had Daratumumab or Isatuximab in the past 6 months?->Unknown Lulu Jenkins MD LAB BLOOD BANK TEST OR DERABLES Final Result Performing Organization Address City/[facility]/ZIP Co de Phone Number [facility] [place] [address] * (ABNORMAL) Comprehensive metabolic panel (05/17/2024 12:29 PM DISPATCHER REFINERY) Sodium 137 135 - 145 mmol/L Potassium, pl 3.9 3.3 - 4.9 mmol/L [facility] Chloride 103 97 - 110 mmol/L [facility] CO2 21(L) 22 - 32 mmol/L [facility] Anion gap 13 2 - 15 mmol/L [facility] BUN 5(L) 6 - 25 mg/dL [facility] Creatinine 0.43(L) 0.60 - 1.10 mg/dL [facility] Glucose 70 70 - 199 mg/dL [facility] Comment: Interpretive Data Fasting glucose >/= 126 mg/dl is diagnostic for diabetes. Fasting is defined as no caloric intake for at least 8 hours. Fasting glucose between 100 mg/dl to 125 mg/dl is diagnostic of prediabetes. In a patient with classic symptoms of hyperglycemia or hyperglycemic crisis, a random glucose >/= 200 mg/dl is diagnostic for diabetes. In the absence of unequivocal hyperglycemia, results should be confirmed by repeat testing. The classification and Diagnosis of Diabetes Diabetes Care 2021; 46: S19-S40. Current interpretive data was last revised 2022. Calcium 8.8 8.5 - 10.3 mg/dL [facility] Bilirubin, total 1.5(H) 0.1 - 1.2 mg/dL [facility] Protein, pl 6.6 6.5 - 8.5 g/dL [facility] Albumin 3.3(L) 3.5 - 5.0 g/dL [facility] Alk phos 126 40 - 130 Units/L [facility] ALT 9 7 - 45 Units/L [facility] AST 19 10 - 45 Units/L [facility] Blood 05/17/2024 12:2 9 PM DISPATCHER REFINERY 05/17/2024 12:43 PM DISPATCHER REFINERY us Lulu Jenkins MD LAB BLOOD ORDERABLES F inal Result [facility] Department [place] [address] * nonstress test - (05/17/2024 10:30 AM DISPATCHER REFINERY) us Tyler Maloney MD OB GYNE ORDERABLE S Final Result * Hepatitis C antibody Blood (10/30/2023 7:03 AM CDT) Hep C Ab NON-REACTI VE NON-REACT CHELLE [facility] Comment: HCV antibody was non-reactive. There is no laboratory evidence of HCV infection. In most cases, no further action is required. However, if recent HCV exposure is suspected, a test for HCV RNA (test code 71688) is suggested. For additional information please refer to http://education.Merchantry/faq/ETZ10p1 (This link is being provided for informational/ educational purposes only.) Blood 10/30/2023 7:03 AM CDT 10/30/2023 7:04 AM CDT Jared Jonas MD LAB MICROBIOLOGY - [facility] L ORDERABLES Final Result [facility] [address] [place] [address] * High Risk HPV DNA Detection with Genotyping (Molecular component) (10/24/2023 10:12 AM CDT) Pathologist [facility] HPV HR 16 Not Detected Not Detected [facility] HPV HR 18 Not Detected Not Detected [facility] HPV HR Non 16/18 Not Detected Not Detected [facility] Comment: Interpretive Data Nucleic acid amplification for detection of high-risk Human Papilloma virus (HPV) is performed by the Mitch Rachel 6800 HPV test. This assay specifically detects HPV-16 and HPV-18 genotypes. The following HPV genotypes are detected as high-risk HPV: HPV-31, 33, 35, ,39, 45, 51, 52, 56, 58, 59, 66, and 68. This assay has been approved by the [place] Food and Drug Administration for detection of HPV in cervical specimens collected by a physician using an endocervical brush/spatula or cervical broom and placed in the ThinPrep Pap Test PreservCyt collection containers. The performance characteristics of this test have been verified by the [facility] Molecular Infectious Disease laboratory. Correlate with separately reported cytology results, as applicable. Interpretive data last revised 22 Endocervical 10/24/2023 10:1 2 AM CDT 10/25/2023 12:08 PM CDT Narrative [facility] - 10/26/2023 1:20 AM CDT Clinical history and diagnosis->Remote history of abnormal Number of vials->1 Testing type->Screening Last menstrual period (date if known)->08/21/23 Menstrual status-> Jared Jonas MD LAB BODY FLUIDS AND STOOL S ORDERABLES Final Result [facility] [place] [address] [facility] from Last 3 Months or Most Recently Relevant to Health Maintenance Insurance [facility] CHOICE PLUS [employer] CHOICE ANTHEM ACCESS CHOICE Advance Directives For more information, please contact: [phone] * Full Code (Latest Code Status on File) Date Activated Date Inactivated Comments 05/17/2024 7:00 PM 05/19/2024 6:01 PM * Full Code Date Activated Date Inactivated Comments 05/17/2024 12:19 PM 05/17/2024 7:00 PM Full CPR in case of cardiopulmonary arrest * Full Code Date Activated Date Inactivated Comments 01/13/2023 12:25 AM 01/15/2023 7:02 PM * Full Code Date Activated Date Inactivated Comments 01/12/2023 1:56 PM 01/13/2023 12:25 AM Full CPR in case of cardiopulmonary arrest * Full Code Date Activated Date Inactivated Comments 07/13/2020 7:51 AM 07/13/2020 2:28 PM Care Teams Mailroom Courier Relationship Specialty [place] [address] [place] [address] PCP - General Family Medicine 07/28/21
--- OUTSIDE RECORDS SUMMARY | 2024-08-15 08:23 | XMS_ITS | Encounter Summary ---
Author Organization [facility] Address [address] [place] [address] Care Team Providers Care Devulcanizer Tender Name Role Phone Jael ThomasNP Primary Care Provider [phone] Madhuri KohliC Primary Care Provider [phone] Encounter Details Date Type Department Care Team (Late st Contact Info) Description 09/13/2020 Abundance Generation Message [facility] [address] [place] [address] Martina Morris, WET SILK HANGER Test Results Social History Tobacco Use Types Packs/Day Years [...] Master's degree (e.g., MA, MS, Omar, MEd, PATIENT INTAKE COORDINATOR, [employer]) 01/28/2019 Comments No Sex and Gender [...] have Coronavirus / COVID-19? No / Unsure 09/03/2020 9:05 AM INSURANCE CLAIMS SPECIALIST documented as of this encounter Plan of Treatment Not on file documented as of this encounter Visit Diagnoses Not on filedocumented in this encounter Care Teams Devulcanizer Tender Relationship Specialty Start Date End Date Jael Thomas APNP [address] [facility] [address] [place] [id number] PCP - General Nurse Practitioner [facility] 01/28/1902/01 Madhuri Kohli, [place] [address] [facility] [address] [place] [address] PCP - General PHYSICIAN ROUGH RICE TENDER 02/21/23 documented as of this encounter
--- OUTSIDE RECORDS SUMMARY | 2024-08-15 08:23 | XMS_ITS | Clinical Summary ---
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 They are enrolled in remote blood pressure monitoring for their BP check. Desires discharge home tomorrow. Service Coverage These phones are service phones and carried 23/01 in house: R1 (first call) [phone] R1 alt (second call) [phone] R4 (Chief) [phone] Supervision of other high risk , antepa [...] week Assessment & Plan (05/14/2024 10:43 AM PONY ROLL FINISHER): Again reviewed risks of polyhydramnios include contractions, SROM, malposition or umbilical cord prolapse. Assessment & Plan (05/07/2024 8:56 AM PONY ROLL FINISHER): Stable 05/07/2024 Feeling exhausted 04/02/2024 06/04/2024 Overview (04/25/2024): Continues to feel exhausted. 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) [x] Serial growth scans beginning at 24 weeks [x] testing- now 2x/weekly for maternal benefits 2/2 decreased movement Supervision of high-risk pre gnancy, second trimester 12/06/2023 06/04/2024 Overview (05/14/2024): [facility] RN: Fariba Murry [x] Full [facility] care [x] Blue Team Referring Provider: Mary Bush [phone] [] or Medicare Insurance [x] Dating Criteria: [place] [...] 04/30/2024 [x] Method of feeding: breast [x] Functional Manager: [x] PP Depression Discussed: AMA (advanced maternal [...] dx 12/20/23 - plan to transfer to [facility] [x] Initial BMI: 30.72 [x] Labs: Lab Results Component Value Date ABORH A Positive 01/12/2023 IDCOOMB Negative 01/12/2023 [id number] Nonreactive 01/12/2023 LABRPR NON-REACTIVE 10/30/2023 RUBELIGG 0.92 [...] (10/13/2022): Added automatically from request for surgery [id number] Encounter for maternal care for low transverse scar from previous delivery 12/25/2018 02/23/2023 Overview (10/13/2022): Added automatically from request for surgery [id number] Added automatically from request for surgery [id number] Added automatically from request for surgery [id number] Supervision of other normal , antepartum 06/24/2014 [...] @ 36wks Girl Piper , ped in [place], [place] Teaching: [x] 1st visit [x] 28-30 week [x] 36 week GBS carrier 06/05/2014 02/23/2023 Overview (10/13/2022): Urine Positive GBS 06/2014 Overview: Urine Positive GBS 06/2014 Urine Positive GBS 06/2014 Encounters Date Type Department Care Team Description 07/01/2024 10:00 AM PONY ROLL FINISHER Office Visit [facility] Maternal- Medicine [address] [place] [address] 7th [address] [place] [address] Encounter for routine follow-up (Primary Dx) 06/13/2024 Encounter [facility] [address] [place] [phone] 06/12/2024 10:20 AM [place] [address] Genetic testing 06/11/2024 Orders Only [facility] Pediatric Genetics [facility] 2nd [place] [address] [place] [address] Lisette Singh CGC Genetic testing (Primary Dx) 06/06/2024 Encounter [facility] [address] [place] [address] 06/04/2024 9:40 AM PONY ROLL FINISHER Office Visit [facility] Maternal- Medicine [address] [place] [address] 7th Floor [address] [place] [address] Delivery of by section (Primary Dx) 06/04/2024 Encounter [facility] [address] [place] [address] 05/29/2024 Encounter [facility] [address] [place] [phone] 05/21/2024 Documentation [facility] [address] [place] [address] Margo Desai MD 05/21/2024 Encounter [facility] [address] [place] [address] 05/20/2024 6:08 AM PONY ROLL FINISHER - 05/20/2024 8:00 AM PONY ROLL FINISHER Hospital Encounter [address] [address] Joceline Zheng MD Discharge Disposition: Discharge to home or self care 05/20/2024 Encounter [facility] [address] [place] [address] 05/20/2024 Nurse Triage [address] [address] Christie Armijo RN 05/17/2024 7:00 PM PONY ROLL FINISHER - 05/17/2024 9:30 PM PONY ROLL FINISHER Surgery [address] [address] Stacie Tsang MD REPEAT SECTION 05/17/2024 4:41 PM PONY ROLL FINISHER Anesthesia Event [address] [address] Esther Rayo MD Candelaria, Patrick Garrett, MD 05/17/2024 10:30 AM PONY ROLL FINISHER - 05/19/2024 1:56 PM PONY ROLL FINISHER Hospital Encounter [address] [address] Sarah Rider MD Rampersad, Roxane Marie, MD Meka, Raina Advani, MD Supervision of other high risk , antepartum (Primary Dx) Discharge Disposition: Discharge to home or self care 05/17/2024 9:30 AM PONY ROLL FINISHER Clinical Support [facility] Obstetrics and Gynecology [address] [facility] 7th [place] [address] PAC (premature atrial contraction) (Primary Dx); Maternal care for suspected chromosomal abnormality in fetus, fetus 1 05/17/2024 Orders Only [address] [address] Stacie Tsang MD from Last 3 Months Immunizations Name Administration Dates Next Due Flucelvax Influenza Quad 04/02/2020 Influenza, Quadrivalent, Christina l Culture-based MDCK, Preservative Free, Antibiotic Free, Intramuscular 06/14/2022 Influenza, Trivalent, Cell Culture-based MDCK, Preservative Free, Antibiotic Free, Intramuscular 04/02/2020 Influenza, Trivalent, IM (MDV) 08/31/2014 Influenza, Unspecified 06/14/2022,04/02/2020 MMR 05/19/2024 Tdap 03/14/2024,11/17/2022,12/01/2014 Varicella 05/19/2024(Deferred: No longer n eeded) Surgical History Surgery Date Site/Laterality Comments CA DELIVERY ONLY Section - (Added by TW Conv) SECTION LAPAROSCOPIC CHOLECYSTECTOMY 07/03/2018 - 07/02/2019 HYSTEROSCOPY 01/31/2019 - 03/02/2019 lysis of FAUSTO adhesion Medical History Medical History Date Comments Encounter for supervision of normal first Normal , first - (A dded by TW Conv) Personal history of other sp ecified conditions History of impaired glucose tolerance - (Added by TW Conv) Sciatic pain Migraine Related to caffe ine use Family History Medical History Relation Name Comments Diabetes type II Father Family hist ory of type 2 diabetes mellitus - (Added by TW Conv) Hypertension Father Family history of hypertension - (Added by TW Conv) Ovarian cancer Maternal Grandmother Ovari an cancer - (Added by TW Conv) Blood Clot Other Diabetes Other Gallbladder disease Other Deep vein thrombosis Sister 1 Deep vein thrombosis Sister 2 Anesthesia problems Neg Hx Bleeding Disorder Neg Hx Breast cancer Neg Hx Colon cancer Neg Hx Pancreatic cancer Neg Hx Uterine cancer Neg Hx Relation Name Status Comments Father Maternal Grandmother Other Sister 1 Sister 2 Alive Social History Tobacco Use Types Packs/Day Years Used Date Smoking Tobacco: Never Smokeless Tobacco: Never Tobacco Cessation:Counseling Given: Not Answered Alcohol Use Standard Drinks/Week Comments Yes 0 (1 standard drink = 0.6 oz pur e alcohol) [facility] Utilities Answer Date Recorded In the past 12 months has e Lumiary, gas, oil, or water Visualtising threatened to shut off services in your [...] often do you attend chur ch or restoration services? Never 05/18/2024 Do you belong to any clubs o r organizations such as adventist groups, unions, fraternal or athletic groups, or [...] place to sleep or slept in a correction (including now)? No 01/13/2023 [place] Depression Scale Answer Date Recorded [place] Depression Scale Total 1 07/01/2024 The thought [...] any time in the past 12 m [facility], were you homeless or living in a correction (including now)? 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 Not on file Not on file Not on file Obstetrics History Para Term AB IAB SAB Ectopic Multiple Livin g Live Births 3 3 3 0 3 3 Date Outcome GA Total Labor Labor/2nd/3rd Weight Sex Type Anes PTL Monika A1 A5 Name Clin 2014 Term 39w 1d 3.44 kg (7 lb 9.3 oz) M CS-LT ranv Epidur al Livin g Complications:Failure to Pro jv in First Stage 2022 Term 38w 1d 0h 02m 0h 02m 2.88 kg (6 lb 5.6 oz) F C-Sec tion Combin ed Spinal /Epidu ral N Livin g 8 9 SENCI, GIRLSydney Luna MD Delivery Location:[facility] Main C ampus ([facility] L AND D PROCEDURE) 2023 Term 37w 5d 0h 01m 0h 01m 3.09 kg (6 lb 13 oz) F C-Sec tion Combin ed Spinal /Epidu ral N Livin g 7 8 Stacie Baker i, MD Complications:None Delivery Location:[facility] Main C ampus ([facility] L AND D PROCEDURE) Comments G1 - spontaneous in 2014. C- section for failure to progress. [id number]- Piper -38w1d with elevated blood pressure in clinic and now diagnosis of gestational hypertension. EBL 600 mL. No complications. Last Filed Vital Signs Vital Sign Reading Time Taken Comments Blood Pressure 129/86 07/01/2024 10:06 AM PONY ROLL FINISHER Pulse 76 07/01/2024 10:06 AM PONY ROLL FINISHER Temperature 36.4 C (97.5 F) 05/20/2024 6:15 AM PONY ROLL FINISHER Respiratory Rate 18 05/20/2024 6:15 AM PONY ROLL FINISHER Oxygen Saturation 98% 07/01/2024 10:06 AM PONY ROLL FINISHER Inhaled Oxygen Concentration - - Weight 81 kg (178 lb 9.6 oz) 07/01/2024 10:06 AM PONY ROLL FINISHER Height 160 cm (5' 3 ) 07/01/2024 10:06 AM PONY ROLL FINISHER Body Mass Index 31.64 07/01/2024 10:06 AM PONY ROLL FINISHER Plan of Treatment Health Maintenance Due Date Last Done Comments Varicella Vaccines (1 of 2 - 13+ 2-dose series) 2000 Hepatitis B Screening 2005 Regular Well Visit/Exam 18-64 08/13/2019 08/13/2018 Influenza Vaccine (#1) 2024 , 06/14/2022, 04/02/2020, Additional history exists Cervical Cancer Screening 10/23/2024 10/24/2023, Depression Screening 07/01/2025 07/01/2024 DTaP/Tdap/Td Vaccine (4 - Td or Tdap) 03/14/2034 03/14/2024, 11/17/2022, 12/01/2014 Hepatitis C Screening Completed 10/30/2023, 022 HPV Vaccines Aged Out No longer eligi ble based on patient's age to complete this topic Pneumococcal vaccine <65 Aged Out No longer eligible based on patient's age to complete this topic Procedures Procedure Name Priority Date/Time Associated Diagnosis Comments MISCELLANEOUS GENETICS LAB Routine 06/12/2024 10:17 AM PONY ROLL FINISHER Genetic testing CBC WITHOUT DIFFERENTIAL Routine 05/18/2024 5:53 AM PONY ROLL FINISHER SURGICAL PATHOLOGY Routine 05/17/2024 6: 57 PM PONY ROLL FINISHER ANESTHESIA CSE BLOCK Routine 05/17/2024 5:20 PM PONY ROLL FINISHER REPEAT SECTION 05/17/2024 4:42 PM PONY ROLL FINISHER Supervision of other high risk , antepartum Case Notes Scheduled c/s, terminal decel immediately after spinal placement, level 1 c/s called POCT URINALYSIS (CLINITEK) Routine 05/17/2024 1:20 PM PONY ROLL FINISHER PROTEIN / CREATININE RATIO, URINE, RANDOM Routine 05/17/2024 1:06 PM PONY ROLL FINISHER EGFR STAT 05/17/2024 12:29 PM PONY ROLL FINISHER TYPE AND SCREEN STAT 05/17/2024 12:29 PM PONY ROLL FINISHER COMPREHENSIVE METABOLIC PANEL STAT 05/17/2024 12:29 PM PONY ROLL FINISHER CBC WITHOUT DIFFERENTIAL STAT 05/17/2024 12:29 PM PONY ROLL FINISHER RPR STAT 05/17/2024 12:29 PM PONY ROLL FINISHER NONSTRESS TEST Routine 05/17/2024 10:30 AM PONY ROLL FINISHER PAC (premature atrial contraction) Maternal care for [...] parental sample for rapid genome (orders in [employer] under Darnelljaylen Rudolph) - Miscellaneous Test (06/12/2024 10:17 AM PONY ROLL FINISHER) Test Name Parental sample for Rapid Genome Sequencing Result 1 See Comment [facility] Comment:Parental sample sent on 06/12/24; see Proband report once completed. Complete [id number] [facility] Miscellaneous 06/12/2024 10: 17 AM PONY ROLL FINISHER 06/12/2024 9:49 PM PONY ROLL FINISHER Narrative [facility] - 06/12/2024 9:49 PM PONY ROLL FINISHER Name of test to be performed:->No charge, parental sample for rapid genome (orders in [employer] under Darnell Sendiogo) Specimen type/source->3-5mL in EDTA Yvonne Swan MD LAB GENETIC TESTING nal Result [facility] [place] [address] * (ABNORMAL) CBC without differential (05/18/2024 5:53 AM PONY ROLL FINISHER) [facility] WBC 12.3(H) 3.8 - 9.9 K/cumm Hgb 11.4(L) 11.9 - 15.5 g/dL [facility] Hct 35.9 35.6 - 45.5 % [facility] Plt 262 150 - 400 K/cumm [facility] MPV 10.0 9.1 - 12.3 fL [facility] RBC 3.84(L) 3.90 - 5.20 M/cumm [facility] MCV 93.5 81.3 - 96.4 fL [facility] MCH 29.7 27.1 - 33.3 pg [facility] MCHC 31.8(L) 32.3 - 35.7 g/dL [facility] RDW CV 15.8(H) 11.1 - 14.9 % [facility] RDW SD 53.9(H) 35.7 - 48.1 fL [facility] NRBC abs 0.00 0.00 - 0.01 K/cumm [facility] Blood 05/18/2024 5:53 AM PONY ROLL FINISHER 05/18/2024 6:23 AM PONY ROLL FINISHER us Stacie Tsang MD LAB BLOOD ORDERABLES Final Result [facility] Department [place] [address] * Surgical pathology (05/17/2024 6:57 PM PONY ROLL FINISHER) Placenta 05/17/2024 6:57 PM PONY ROLL FINISHER 05/20/2024 8:56 AM PONY ROLL FINISHER Narrative 05/23/2024 4:57 PM PONY ROLL FINISHER EPIC results best viewed via link to PDF [facility] Jael Carrillo Laboratory [place] [address] Note to Patients: This report may contain [...] Gender: F : 1985 (Age: 38) Address: [address] [place], [place] [id number] Hospital #: [id number] Taken:05/17/2024 Received:05/20/2024 Reported: 05/23/2024 Patient Type: [facility] Inpatient Service: Obstetrics Location: [place] [address] Physician(s): MD Jael Valadez NP Diagnosis: Placenta, [...] Out By Elda Cowan M.D. 05/23/2024 16:57:03 Arianna GarciaBMarionSMarion History: The patient is a 38-year-old woman [...] Surgical Pathology and Flow Cytometry Departments at [facility] as part of an ongoing quality control clerk program and in compliance with federally mandated [...] Surgical Pathology and Flow Cytometry Departments of [facility]. It has not been cleared or approved by the U. S. Food and Drug Administration. IMAGES AND SCANNED DOCUMENTS, IF INCLUDED, ONLY VIEWABLE IN PDF VERSION OF REPORT us Stacie Tsang MD LAB PATHOLOGY ORDERABLES Fi nal Result * CSE Block (05/17/2024 5:20 PM PONY ROLL FINISHER) John Rincon MD - 05/17/2024 5:20 PM PONY ROLL FINISHER John Chu MD 05/17/2024 5:21 PM CSE [...] left: T4 Sensory level - right: T4 us Esther Rayo MD ANESTHESIA ORDERABLES Final Result * (ABNORMAL) POCT urinalysis (Clinitek) (05/17/2024 1:20 PM PONY ROLL FINISHER) Color, ur, POC Yellow Yellow Clarity, UA, POC Clear Clear [facility] Glucose, ur, POC Negative Negative [facility] Bilirubin, ur, POC Negative Negative [facility] Ketones, ur, POC 1+(A) Negative [facility] Specific gravity, ur, POC 1.015 1.010 - 1.025 [facility] Blood, ur, POC Negative Negative [facility] pH, ur, POC 7.0 [facility] Comment: Interpretive Data Urine pH is affected by diet, medications, systemic acid-base disturbances, and renal tubular function. pH may affect urinary stone formation. For example, urine pH below 6.0 may help reduce the tendency for calcium phosphate stones and pH greater than 6.0 may reduce the tendency for uric acid stone formation. Source: Consumr. Last Revised Date: 07-13-2017 Protein, ur, POC Negative Negative [facility] Urobilinogen, ur, POC 0.2 mg/dL mg/dL [facility] Nitrites, ur, POC Negative Negative [facility] Leukocyte esterase, ur, POC Negative Negative [facility] Urine 05/17/2024 1:20 PM PONY ROLL FINISHER 05/17/2024 1:20 PM PONY ROLL FINISHER Lulu Jenkins MD LAB POCT ORDERABLES - DEVICE Final Result [facility] Department [place] [address] * Protein / creatinine ratio, urine, random (05/17/2024 1:06 PM PONY ROLL FINISHER) Protein, ur, quant 5.8 mg/dL Comment: Interpretive Data No reference range established. Current interpretive data was last revised 2018. Creatinine Ur 39.9 mg/dL [facility] Comment: Interpretive Data No reference range established. Current interpretive data was last revised 2018. Protein/creatinin e ratio 145.4 0.0 - 180.0 mg/g CR [facility] Urine 05/17/2024 1:06 PM PONY ROLL FINISHER 05/17/2024 1:27 PM PONY ROLL FINISHER Lulu Jenkins MD LAB URINE ORDERABLES F inal Result Performing Organization Address [facility] Co de Phone Number [facility] Department [place] [address] * eGFR (05/17/2024 12:29 PM PONY ROLL FINISHER) eGFR >90 >=60 mL/min/1. 73 m2 Comment: [...] reviewed 2021. Blood 05/17/2024 12:2 9 PM PONY ROLL FINISHER 05/17/2024 12:43 PM PONY ROLL FINISHER Lulu Jenkins MD LAB BLOOD ORDERABLES F inal Result Performing Organization Address [facility] Co de Phone Number [facility] Department [place] [address] * RPR Blood (05/17/2024 12:29 PM PONY ROLL FINISHER) RPR Nonreactive Nonreactive Blood 05/17/2024 12:2 9 PM PONY ROLL FINISHER 05/17/2024 12:43 PM PONY ROLL FINISHER Lluu Jenkins MD LAB MICROBIOLOGY - GEN ERAL ORDERABLES Final Result Performing Organization Address [facility]/ZIP Co de Phone Number [facility] Department [place] [address] * (ABNORMAL) CBC without differential (05/17/2024 12:29 PM PONY ROLL FINISHER) [facility] WBC 10.0(H) 3.8 - 9.9 K/cumm Hgb 12.5 11.9 - 15.5 g/dL [facility] Hct 38.8 35.6 - 45.5 % [facility] Plt 294 150 - 400 K/cumm [facility] MPV 9.8 9.1 - 12.3 fL [facility] RBC 4.26 3.90 - 5.20 M/cumm [facility] MCV 91.1 81.3 - 96.4 fL [facility] MCH 29.3 27.1 - 33.3 pg [facility] MCHC 32.2(L) 32.3 - 35.7 g/dL [facility] RDW CV 15.7(H) 11.1 - 14.9 % [facility] RDW SD 52.5(H) 35.7 - 48.1 fL [facility] NRBC abs 0.00 0.00 - 0.01 K/cumm [facility] Blood 05/17/2024 12:2 9 PM PONY ROLL FINISHER 05/17/2024 12:43 PM PONY ROLL FINISHER Lulu Jenkins MD LAB BLOOD ORDERABLES F inal Result Performing Organization Address City/[facility]/ZIP Co de Phone Number [facility] Department [place] [address] * Type and screen (05/17/2024 12:29 PM PONY ROLL FINISHER) ABO Rh A Positive Butch, indirect Negative [facility] Blood 05/17/2024 12:2 9 PM PONY ROLL FINISHER 05/17/2024 12:57 PM PONY ROLL FINISHER Narrative [facility] - 05/17/2024 1:47 PM PONY ROLL FINISHER Has the patient had Daratumumab or Isatuximab in the past 6 months?->Unknown Lulu Jenkins MD LAB BLOOD BANK TEST OR DERABLES Final Result [facility] [place] [address] * (ABNORMAL) Comprehensive metabolic panel (05/17/2024 12:29 PM PONY ROLL FINISHER) Pathologist [facility] Sodium 137 135 - 145 mmol/L Potassium, pl 3.9 3.3 - 4.9 mmol/L [facility] Chloride 103 97 - 110 mmol/L [facility] CO2 21(L) 22 - 32 mmol/L [facility] Anion gap 13 2 - 15 mmol/L [facility] BUN 5(L) 6 - 25 mg/dL [facility] Creatinine 0.43(L) 0.60 - 1.10 mg/dL [facility] Glucose 70 70 - 199 mg/dL [facility] Comment: Interpretive Data Fasting glucose >/= 126 [...] classification and Diagnosis of Diabetes Diabetes Care 202; 46: S19-S40. Current interpretive data was last revised 2022. Calcium 8.8 8.5 - 10.3 mg/dL [facility] Bilirubin, total 1.5(H) 0.1 - 1.2 mg/dL [facility] Protein, pl 6.6 6.5 - 8.5 g/dL [facility] Albumin 3.3(L) 3.5 - 5.0 g/dL [facility] Alk phos 126 40 - 130 Units/L [facility] ALT 9 7 - 45 Units/L [facility] AST 19 10 - 45 Units/L [facility] Blood 05/17/2024 12:2 9 PM PONY ROLL FINISHER 05/17/2024 12:43 PM PONY ROLL FINISHER Lulu Jenkins MD LAB BLOOD ORDERABLES F inal Result [facility] [place] [address] * nonstress test - (05/17/2024 10:30 AM PONY ROLL FINISHER) us Tyler Maloney MD OB GYNE ORDERABLE S Final Result * Hepatitis C antibody Blood (10/30/2023 7:03 AM CDT) Hep C Ab NON-REACTI VE NON-REACT [facility] Comment: HCV antibody was non-reactive. There is no laboratory evidence of HCV infection. In most cases, no further action is required. However, if recent HCV exposure is suspected, a test for HCV RNA (test code 63660) is suggested. For additional information please refer to http://education.[employer]/faq/GNQ24r6 (This link is being provided for informational/ educational purposes only.) Blood 10/30/2023 7:03 AM CDT 10/30/2023 7:04 AM CDT us Jared Jonas MD LAB MICROBIOLOGY - GENERA L ORDERABLES Final Result [facility] [id number] [place] [address] * High Risk HPV DNA Detection with Genotyping (Molecular component) (10/24/2023 10:12 AM CDT) HPV HR 16 Not Detected Not Detected [facility] HPV HR 18 Not Detected Not Detected [facility] HPV HR Non 16/18 Not Detected Not Detected [facility] Comment: Interpretive Data Nucleic acid amplification [...] this test have been verified by the [facility] Molecular Infectious Disease laboratory. Correlate with separately reported cytology results, as applicable. Interpretive data last revised 22 Endocervical 10/24/2023 10:1 2 AM CDT 10/25/2023 12:08 PM CDT Narrative [facility] - 10/26/2023 1:20 AM CDT Clinical history and diagnosis->Remote history of abnormal Number of vials->1 Testing type->Screening Last menstrual period (date if known)->08/21/23 Menstrual status-> Jared Jonas MD LAB BODY FLUIDS AND STOOL S ORDERABLES Final Result [facility] [place] [address] [facility] from Last 3 Months or Most Recently Relevant to Health Maintenance Insurance [facility] CHOICE PLUS [employer] ACCESS CHOICE ANTHEM ACCESS CHOICE Advance Directives For more information, please contact: [phone] * Full Code (Latest Code Status on [...] 7:51 AM 07/13/2020 2:28 PM Care Teams Hook Up Driver Relationship Specialty [place] [address] [place] [address] PCP - General Family Medicine 07/28/21
[2024-08-15 08:30] VITALS: BP 123/84; PULSE 98; RESP 18; TEMP 36.4; O2SAT 98
--- NOTE | 2024-08-15 08:33 | ED_ITS ---
HPI - URI/Sore Throat General Chief Complaint: Upper Respiratory Infection Stated Complaint: RT Ear Pain / sore throat Time Seen by Provider: 08/15/24 08:20 Source: patient Mode of arrival: ambulatory Limitations: no limitations History of Present Illness HPI Narrative: Yue is a 39-year-old female patient presenting to the clinic today with complaints of right ear pain, sore throat, cough, congestion, and body aches. She reports symptoms started yesterday. States her child tested positive for influenza and RSV approximately 2 weeks ago. Denies any chest pain or shortness of breath. Denies any known fever. MD elicited complaint: sore throat and nasal congestion Related Data Allergies Allergy/AdvReac Type Severity Reaction Status Date / Time No Known Allergies Allergy Verified 08/15/24 08:29 Review of Systems Review of Systems: Pertinent positives per HPI. Patient denies any fever, chills, rash, headache, visual changes, dizziness, shortness of breath, chest pain, palpitations, nausea, vomiting, diarrhea, constipation, abdominal pain, or any urinary issues. [facility] Past Medical History Medical History (Updated 08/15/24 @ 08:53 by Homero Mcrae APRN) Acid reflux Surgical History Surgical History No pertinent past surgical history Social History Social History Smoking status: Never smoker Alcohol intake: never Substance use: never Gender identity (if verbalized by the patient): Female Comments At the time of my signature, I reviewed and agree with the nursing past medical, surgical, social, and family history. There is no relevant family history pertinent to the patient complaint. Exam Narrative: General: Well-developed, well nourished, in no apparent distress Head: Normocephalic, atraumatic Eyes: Pupils equally round and reactive to light bilaterally, EOM intact, sclera and conjunctive clear, no discharge, lids normal Ears: TMs intact and clear, ear canals clear, no drainage, grossly hearing normal. Nose: Nares patent, clear nasal discharge, mild inflammation, no sinus tenderness. Mouth: Oral pharynx without lesions or masses, good dentition, MMM. Postnasal drip Neck: Supple, trachea midline, no enlargement of anterior or posterior cervical nodes, no thyroid masses or goiter palpable. Cardio: Regular rate and rhythm, s1 and s2 normal, no murmur appreciated. Resp: Clear to auscultation bilaterally, no rhonchi, rales, wheezing or rubs Course Course Emergency Course: Portions of this record may have been created with voice recognition software. Level of Care: Express Care Visit Vital Signs Vital signs: Vital Signs Temperature 36.4 C 08/15/24 08:30 Pulse Rate 98 08/15/24 08:30 Respiratory Rate 18 08/15/24 08:30 Blood Pressure 123/84 08/15/24 08:30 Pulse Oximetry 98 08/15/24 08:30 Oxygen Delivery Room Air 08/15/24 08:30 Temperature 36.4 C 08/15/24 08:30 Pulse Rate 98 08/15/24 08:30 Respiratory Rate 18 08/15/24 08:30 Blood Pressure 123/84 08/15/24 08:30 Pulse Oximetry 98 08/15/24 08:30 Oxygen Delivery Room Air 08/15/24 08:30 Vital signs reviewed MDM - URI/Sore Throat MDM Narrative Medical decision making narrative: At the time of visit patient is resting comfortably on the exam table. Patient appears to be nontoxic. Labs: Influenza and strep test was performed. All testing was negative. We will send strep for culture. Plan: I suspect patient has URI/pharyngitis/viral syndrome. Supportive measures were discussed with the patient and they voiced understanding discharge instructions and agrees to treatment plan. Return precautions reviewed Differential Diagnosis Differential diagnosis: Likely upper respiratory infection, otitis media, sinusitis, viral infection, bronchitis, influenza, pharyngitis and other (COVID) Discharge Plan Discharge Clinical Impression: Otalgia of right ear, Viral infection Upper respiratory infection Qualifiers: URI type: unspecified URI Qualified Code(s): J06.9 - Acute upper respiratory infection, unspecified Pharyngitis Qualifiers: Pharyngitis/tonsillitis etiology: unspecified etiology Qualified Code(s): J02.9 - Acute pharyngitis, unspecified Patient Disposition: Home, Self-Care Condition: Stable Instructions: Antibiotic Form, Pharyngitis (ED), Upper Respiratory Infection (ED), Earache (ED), Viral Syndrome (ED) Additional Instructions: Strep and influenza testing was negative in the clinic today. We will send strep for culture if this comes back positive we will contact you in place you on antibiotics at that time. Lung sounds are clear in the office today and there was no sign of bacterial infection May apply warm compress to the right ear to help alleviate pain Cool-mist humidifier at the bedside May take Sudafed for nasal congestion May take DayQuil/NyQuil for cold/flu symptoms Increase fluids and stay well hydrated Tylenol/motrin for pain/fever Flonase and OTC antihistamines as directed Vicks vapor rub to open sinuses Sinus rinses for congestion Cepacol spray, cough drops, throat lozenges, warm tea with honey/lemon, gargle salt water to soothe throat BRAT diet for diarrhea Clear liquids x 24 hours then advance as tolerated for nausea/vomiting Go to the ED if you develop a worsening in your condition- high fever not controlled by Tylenol or Motrin, dehydration, weakness, lethargy, shortness of breath, or chest pain. Follow up with your PCP in 3-5 days if symptoms persist. Patient Language: Albanian Follow-up/Referrals: PHYSICIAN,BROADBAND TECHNICIAN [Primary Care Provider] - Stand Alone Forms: Work/School Release IP Time of Disposition: 08:51 Quality NIHSS Nursing Documentation ED NIHSS nursing documentation: reviewed/agree
[2024-08-15 08:50] LABS: EDSTREPNEGPOS1 Negative (Negative)
[2024-08-15 08:56] LABS: EDINFLUASCREEN Negative (Negative); EDINFLUBSCREEN Negative (Negative)
== END 2024-08-15 09:01 | disposition home or self-care (01) ==
PROVIDERS: Emergency Provider Nurse Practitioner Family
DX: B34.9 Viral infection, unspecified (principal); J06.9 Acute upper respiratory infection, unspecified; J02.9 Acute pharyngitis, unspecified; H92.01 Otalgia, right ear; K21.9 Gastro-esophageal reflux disease without esophagitis
CPT/HCPCS: 87081; 87804; 87880; 99213; G0463

== ENCOUNTER 2025-01-31 18:45 | Emergency (ER) | payer BC, SELFPAY ==
--- NOTE | ~2025-01-31 | XR_ITS ---
EXAM: XR foot RT min 3V DATE: 01/31/2025 19:13 HISTORY: pain to great toe and 1st metatarsal after fall x1 day . COMPARISON: 02/28/2015. FINDINGS: Normal mineralization. No fracture or dislocation. No lytic or blastic lesion. Mild degene rative change at the first MTP joint. Mild hallux valgus. Mild Achilles and plantar enthesopathy. No erosion or periosteal change. Soft tissues within normal limits. IMPRESSION: No acute osseous finding in the right foot. Reviewed, dictated and finalized at location K.
--- OUTSIDE RECORDS SUMMARY | 2025-01-31 18:53 | XMS_ITS | Encounter Summary ---
Author Organization [facility] Address [address] [place] [address] Care Team Providers Care Farm Equipment Assembler Name Role Phone Jael Thomas Primary Care Provider [phone] Madhuri KohliC Primary Care Provider [phone] Annetta Aceves MD Primary Care Provider [phone] Encounter Details Date Type Department Care Team (Late st Contact Info) Description 11/27/2020 Melodigram Message Enc [facility] Family & Internal Medicine [address] [address] Martina Morris, SPEECH COMMUNICATION INSTRUCTOR RE: Question Social History Tobacco Use Types [...] Master's degree (e.g., MA, MS, Omar, MEd, VALVE PIPE IRRIGATOR, [employer]) 01/28/2019 Comments No Sex and Gender [...] on filedocumented in this encounter Care Teams Farm Equipment Assembler Relationship Specialty Start Date End Date Jael Thomas APNP [phone] [address] PCP - General Nurse Practitioner Family 01/28/19 8/07/25 Madhuri Kohli PA-C [id number] [address] PCP - General PHYSICIAN MEDIA SALES REPRESENTATIVE 02/21/23 09/25/24 [place] [id number] [address] PCP - General INTERNAL MEDICINE 09/26/24 documented as of this encounter
--- OUTSIDE RECORDS SUMMARY | 2025-01-31 18:53 | XMS_ITS | Clinical Summary ---
Author Organization [facility] Address [address] [place] [address] Phone Care Team Providers Care Calculus Professor Name Role Phone Unavailable Primary Care Provider Unavailabl e Allergies No known active allergies Medications vit-iron fumarate-FA ( PLUS) 27-1 mg Tablet Take 1 Tab by mouth daily with breakfast. 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 Overview (06/05/2014): Urine Positive GBS 06/2014 Family History Medical History Relation Name Comments Diabetes Father Hypertension Father Cancer Maternal Grandmother Stroke Paternal Grandfather Other Sister bleeding disord er Relation Name Status Comments Father Maternal Grandmother Paternal Grandfather Sister Social History Tobacco Use Types Packs/Day Years Used Date Smoking Tobacco: Never Passive Smoke Exposure: Never Smokeless Tobacco: Never Alcohol Use Standard Drinks/Week Comments Not Currently 0 (1 standard drink = 0.6 oz pur e alcohol) Comments No Sex and Gender Information Value Date Recorded Sex Assigned at Not on file Legal Sex Female 11:07 AM ACUTE CARE PHYSICIAN Gender Identity Not on file Sexual Orientation Not on file Last Filed Vital Signs Vital Sign Reading Time Taken Comments Blood Pressure 108/64 09/21/2022 4:14 PM CDT Pulse - - Temperature - - Respiratory Rate - - Oxygen Saturation - - Inhaled Oxygen Concentration - - Weight 113.9 kg (251 lb) 09/21/2022 4:14 PM CDT Height 160 cm (5' 3) 09/21/2022 4:14 PM CDT Body Mass Index 44.46 09/21/2022 4:14 PM CDT Plan of Treatment Health Maintenance Due Date Last Done Comments HPV VACCINES (1 - 3-dose series) 2002 HEPATITIS B VACCINES (1 of 3 - 19+ 3-dose series) 2006 PAP SMEAR 2017 06/04/2014 CERVICAL CANCER SCREENING 06/04/2019 HPV/Cotest (21-29) 06/04/2019 06/04/2014 HPV/Cotest (30-65) 06/04/2019 06/04/2014 INFLUENZA VACCINE (#1) 2025 2, 04/02/2020, 04/02/2020, Additional history exists DTAP/TDAP/TD VACCINES (3 - T d or Tdap) 11/17/2032 11/17/2022, 12/01/2014 Procedures Procedure Name Priority Date/Time Associated Diagnosis Comments CERV/VAG CYTO SCREEN PAP RLFX HPV Routine 06/04/2014 4:20 PM ACUTE CARE PHYSICIAN Routine gynecological examination Special screening examination for human papillomavirus (HPV) from Last 3 Months or Most Recently Relevant to Health Maintenance Results * CERV/VAG CYTOPATH, THIN PREP IMAGR RFLX HPV (CP) (06/04/2014 4:20 PM ACUTE CARE PHYSICIAN) LAST MENSTRUAL PERIOD 04/15/2014 [facility] PAP INTERP Negative for intraepithelial lesion or malignancy. [facility] Comment: Performed by [facility], [facility] [place] [address] CYTOLOGY INFECTION Shift in vaginal denzel suggestive of bacterial vaginosis. [facility] Respiratory Care Assistant Pap Comment This Pap test has been evaluated with computer assisted technology. [facility] ADEQUACY: Satisfactory for evaluation. Endocervical/trans formation zone component absent. [facility] CLINICAL INFORMATION Information not provided [facility] SOURCE Endocervix [facility] LABORATORY [facility] PREV PAP: INFORMATION NOT PROVIDED [facility] CYTOTECHNOLOGI ST: [place], [place](ASCP) [facility] LABORATORY SERVICES [facility] REVIEW CYTOTECHNOLOGI ST: DUSTY, PREET(ASCP) [facility] LABORATORY SERVICES [facility] PREV BX: INFORMATION NOT PROVIDED [facility] Endocervical 06/04/2014 4:20 PM ACUTE CARE PHYSICIAN 06/04/2014 6:28 PM ACUTE CARE PHYSICIAN Comment:ENDOCERVICAL Narrative [facility] - 06/10/2014 10:44 AM ACUTE CARE PHYSICIAN ecc Lynnette Marie NP PATHOLOGY/CYTOLOGY ORDERABLES Final Result [facility] CLIA# [id number] [address] [place] [id number] from Last 3 Months or Most Recently Relevant to Health Maintenance Insurance [employer] ACCESS CHOICE
--- OUTSIDE RECORDS SUMMARY | 2025-01-31 18:53 | XMS_ITS | Encounter Summary ---
Author Organization [facility] Address [address] [place] [address] Care Team Providers Care User Support Analyst Name Role Phone Jael Thomas Primary Care Provider [phone] Madhuri Kohli PA-C Primary Care Provider [phone] Annetta Aceves MD Primary Care Provider [phone] Encounter Details Date Type Department Care Team (Late st Contact Info) Description 12/30/2019 Prep for Procedure [facility] [address] [place] [address] [place] [address] [place] [address] Social History Tobacco Use Types Packs/Day Years [...] Master's degree (e.g., MA, MS, Omar, MEd, COMPOSITE BOND WORKER, [employer]) 01/28/2019 Comments No Sex and Gender [...] DETECTED NOT DETECTED 01/04/2020 11:43 PM CDT [facility] Comment: A Not Detected (negative) test [...] providers and patients using the following websites: https://www.[employer].com/home/Covid-19/HCP/NAAT/fact-sheet2 https://www.[employer]/home/Covid-19/Patients/NAAT/ fact-sheet2 This test has been authorized by the FDA under an Emergency Use Authorization (EUA) for use by authorized laboratories. Due to the current public health emergency, [facility] is receiving a high volume of samples [...] about COVID-19 can be found at the [facility] website: www.[employer]/Covid19. Test performed at [facility] [address] [place] [address] Director: IRENE RESTREPO DO,MPH NASOPHARYNGEAL SWAB / Unknown 01/03/2020 9:07 AM CDT us Sina Silveira MD MICROBIOLOGY - GENERAL ORDERABLES Final Result [facility] [address] [address] documented in this encounter Visit Diagnoses Diagnosis Pre-op testing- Primary Preoperative examination, unspecified documented in this encounter Additional Health Concerns Infection Onset Date Last Indicated Resolved Time COVID-19 Rule Out 01/03/2020 01/03/2020 01/04/2020 11:43 PM CDT COVID-19 Rule Out 09/10/2020 09/10/2020 09/10/2020 12:36 PM DIRECTOR STAFFING COVID-19 Rule Out 09/10/2020 09/10/2020 09/10/2020 12:37 PM DIRECTOR STAFFING COVID-19 Rule Out 09/10/2020 09/10/2020 09/11/2020 2:10 PM DIRECTOR STAFFING documented as of this encounter Care Teams User Support Analyst Relationship Specialty Start Date End Date Jael Thomas APNP [id number] [address] PCP - General Nurse Practitioner Family 01/28/1902/01 Madhuri Kohli PA-C [address] [place] [address] PCP - General PHYSICIAN OYSTER SHUCKER 02/21/23 09/25/24 [place] [id number] [id number] PCP - General INTERNAL MEDICINE 09/26/24 documented as of this encounter
--- OUTSIDE RECORDS SUMMARY | 2025-01-31 18:53 | XMS_ITS | Clinical Summary ---
Author Organization [facility] Address [facility] [place] [address] Care Team Providers Care Golf Club Manager Name Role Phone Jael Thomas NP Primary Care Provider Allergies No known active allergies Medications norethindrone (AYGESTIN) 5 mg tablet Take 3 tablets (15 mg total) by mouth daily 90 tablet 4 5 01/15/20 26 Active norethindrone (AYGESTIN) 5 mg tablet Take 1 tablet (5 mg total) by mouth daily 1 po qhs for hot flashes 30 tablet 3 5 01/15/20 25 Discontinu ed(Alterna te therapy) Active Problems Patient Care Coordination No te Formatting of this note is d ifferent from the original. Care Team Note Patient Name: Sofy Henderson BRITTA: [birth year] Gestational Age: 36w2d Referring Provider: Justina Primary OB: MFM Radiation Protection Engineer: Pending Diagnosis: Tri 21 by amnio, CHD: balanced CAVC RISK Level YELLOW Testing Twice weekly testing Completed Genetics: Amnio - Tri 21 Ultrasound reviewed with patient by: Moni Melgar 05/07 Completed Consults: NBM, cardiology Delivery Plan: C/S 05/28 Disposition: NICU Treatment Plan: Next Appointment: 05/14 - MFM 05/21 - MFM Problem Noted Date Diagnosed Date Abnormal uterine bleeding (AUB) 12/27/2024 Resolved Problems Problem Noted Date Diagnosed Date Resolved Date Breech presentation, fetus 1 05/17/2024 08/27/2024 Delivery of by section 05/17/2024 11/27/2024 Overview (05/19/2024): # ID: Afebrile. No signs/symptoms of infection. # Heme: QBL 710 mL. Hemodynamically stable. Pre-op hgb 12.5. POD1 hgb 11.4 # CV/Pulm: Gestational hypertension - Blood pressures well controlled on no meds. Asymptomatic, denies PULIDO/RUQ pain/vision changes. CBC/CMP WNL, UPC 0.14. Enrolled [...] # Disposition: Follow up task sent to [facility] scheduling pool for appointments in 2 and 6 weeks. They are enrolled in remote blood pressure monitoring for their BP check. Desires discharge home tomorrow. Service Coverage These phones are service phones and carried 23/01 in house: R1 (first call) [phone] R1 alt (second call) [phone] R4 (Chief) [phone] Polyhydramnios in third trim ramy, not applicable or unspecified fetus 05/07/2024 06/04/20 24 Overview (05/14/2024): Mild poly- stable 05/14/2024 28cm S/p counseling Pt knows to present immediately with SROM Labor precautions reviewed BPP in 1 week Assessment & Plan (05/14/2024 10:43 AM HEALTH CENTER ASSOCIATE): Again reviewed risks of polyhydramnios include contractions, SROM, malposition or umbilical cord prolapse. Assessment & Plan (05/07/2024 8:56 AM HEALTH CENTER ASSOCIATE): Stable 05/07/2024 Supervision of other high ri sk , antepartum 04/30/2024 08/27/2024 Feeling exhausted 04/02/2024 06/04/2024 Overview (04/25/2024): Continues to feel exhausted. She was seen in the [facility] with a negative workup on 02/25. [...] 1 12/06/2023 06/04/2024 Overview (04/30/2024): Ms. Sofy Henderson has a high risk of Down Syndrome on NIPT, with a risk of 95%. 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 Previously counseled Summary of Recommendations: [x] Diagnostic testing plan: amniocentesis with T21 [x] Genetic Counseling referral 12/15/23 [x] medicine referral - 04/16 [x] [facility] Genetics - Down Syndrome Clinic - 04/02 [x] echocardiogram to be scheduled - 02/12 (AV Canal Defect) [x] Serial growth scans beginning at 24 weeks [x] testing- now 2x/weekly for maternal benefits 2/2 decreased movement Supervision of high-risk pre gnancy, second trimester 12/06/2023 06/04/2024 Overview (05/14/2024): LOC[facility]IN [facility] RN: Fariba Murry [x] Full [facility] care [x] Blue Team Referring Provider: Mary Bush [phone] [] or Medicare Insurance [x] Dating Criteria: [...] 04/30/2024 [x] Method of feeding: breast [x] Radiation Protection Engineer: [x] PP Depression Discussed: AMA (advanced maternal age) multigravida 35+, second trimester 12/06/2023 06/04/2024 Overview (01/18/2024): Previously counseled Plan: [x] ASA 81 mg daily History of gestational hypertension 10/29/2023 11/27/2024 Overview (12/15/2023): induced hypertension recurs in approximately 22 percent of subsequent pregnancies (gestational hypertension in 15% and preeclampsia in 7%. Recommendations: [x] Baseline CMP, CBC, and urine p:c - already completed Assessment & Plan (10/29/2023 1:20 AM CDT): -Baseline pre-eclampsia labs ordered -Recommend initiation of ASA 81mg at 12 weeks History of 2 sectio ns/Short interval 10/29/2023 08/27/2024 Assessment & Plan (10/29/2023 1:24 AM CDT): -Repeat 12/2022 for gestational HTN and history of x1 -Recommend repeat Nausea/vomiting in 10/29/2023 06/04/2024 Assessment & Plan [...] dx 12/20/23 - plan to transfer to [facility] [x] Initial BMI: 30.72 [x] Labs: Lab Results Component Value Date ABORH A Positive 01/12/2023 IDCOOMB Negative 01/12/2023 [id number] Nonreactive 01/12/2023 LABRPR NON-REACTIVE 10/30/2023 RUBELIGG 0.92 [...] well controlled on no meds. Asymptomatic, denies PULIDO/RUQ pain/vision changes. CBC/CMP WNL, UPC 0.125. 01/15 [...] task not sent. Desires discharge home today.. Postprandial epigastric pain 10/13/2022 08/27/2024 Multigravida of advanced mat ernal age in second trimester 09/23/2022 11/17/2022 02/23/2023 Previous delivery, antepartum condition or complication 09/23/2022 02/23/2023 Gallstones 12/24/2019 10/29/2023 Overview (10/13/2022): Added automatically from request for surgery [id number] Encounter for maternal care for low transverse scar from previous delivery 12/25/2018 02/23/2023 Overview (10/13/2022): Added automatically from request for surgery [id number] Added automatically from request for surgery [id number] Added automatically from request for surgery [id number] Supervision of other normal , antepartum 06/24/2014 02/23/2023 Overview (01/05/2023): -GEOVANNA @ del -H/o pLTCS d/t NRFS-- planning [...] @ 36wks Girl Piper , ped in [place], [place] Teaching: [x] 1st visit [x] 28-30 week [x] 36 week GBS carrier 06/05/2014 02/23/2023 Overview (10/13/2022): Urine Positive GBS 06/2014 Overview: Urine Positive GBS 06/2014 Urine Positive GBS 06/2014 Encounters Date Type Department Care Team Description 12/27/2024 3:30 PM CDT Office Visit [facility] Obstetrics and Gynecology [address] [place] [address] 7th Floor [address] [place] [address] [phone] Marion Rayo MD Abnormal uterine bleeding (AUB) (Primary Dx) 11/27/2024 3:00 PM CDT Office Visit [facility] Obstetrics and Gynecology [address] [place] [address] Floor [address] [place] [address] [phone] Mirta Landaverde NP Well woman exam (Primary Dx); Healthcare maintenance; Menorrhagia with regular cycle from Last 3 Months Immunizations Immunization Administration Dates Next Due Flucelvax Influenza Quad 04/02/2020 Influenza, Quadrivalent, Christina l Culture-based MDCK, Preservative Free, Antibiotic Free, Intramuscular 06/14/2022 Influenza, Trivalent, Cell Culture-based MDCK, Preservative Free, Antibiotic Free, Intramuscular 04/02/2020 Influenza, Trivalent, IM (MDV) 08/31/2014 Influenza, Unspecified 06/14/2022,04/02/2020 MMR 05/19/2024 Tdap 03/14/2024,11/17/2022,12/01/2014 Varicella 05/19/2024(Deferred: No longer n eeded) Surgical History Surgery Date Site/Laterality Comments CT DELIVERY ONLY Section - (Added by KEVIN Conv) SECTION LAPAROSCOPIC CHOLECYSTECTOMY 07/03/2018 - 07/02/2019 HYSTEROSCOPY 01/31/2019 - 03/02/2019 lysis of AFUSTO adhesion Medical History Medical History Date Comments [...] of hypertension - (Added by TW Conv) Lymphoma Father Ovarian cancer Maternal Grandmother Ovari an cancer - (Added by TW Conv) Blood Clot Other Diabetes Other Gallbladder disease Other Deep vein thrombosis Sister 1 Deep vein thrombosis Sister 2 Anesthesia problems Neg Hx Bleeding Disorder Neg Hx Breast cancer Neg Hx Colon cancer Neg Hx Pancreatic cancer Neg Hx Uterine cancer Neg Hx Relation Name Status Comments Father Alive Maternal Grandmother Mother Alive Other Sister 1 Sister 2 Alive Social History Tobacco Use Types Packs/Day Years Used Date Smoking Tobacco: Never Smokeless Tobacco: Never Tobacco Cessation:Counseling Given: Not Answered Alcohol Use Standard Drinks/Week Comments Yes 0 (1 standard drink = 0.6 oz pur e alcohol) occ [facility] Utilities Answer Date Recorded In the past 12 months has e [employer], gas, oil, or water [employer] threatened to shut off services in your [...] often do you attend chur ch or druze services? Never 05/18/2024 Do you belong to any clubs o r organizations such as restoration groups, unions, fraternal or athletic groups, or school groups? No 05/18/2024 How often do you attend meet ings of the clubs or organizations you belong to? Never 05/18/2024 Are you , , di vorced, , never , or living with a partner? 05/18/2024 AUDIT-C Answer Date Recorded Q1: How often do you have a drink containing alcohol? Never 11/27/2024 Q2: How many drinks containi ng alcohol do you have on a typical day when you are drinking? Patient does not drink Q3: How often do you have si x or more drinks on one occasion? Never 11/27/2024 Overall Financial Resource Strain (CARDIA) Answe r [...] place to sleep or slept in a long term (including now)? No 01/13/2023 [place]ord Depression Scale Answer Date Recorded [place] Depression Scale Total 1 07/01/2024 The thought [...] any time in the past 12 m [facility], were you homeless or living in a long term (including now)? No 05/18/2024 Personal Safety Answer [...] Master's degree (e.g., MA, MS, Omar, MEd, BUOY TENDER, GARFIELD) 10/24/2023 Comments Unknown Sex and Gender Information Value Date Recorded Sex Assigned at Not on file Legal Sex Female 7:59 AM HEALTH CENTER ASSOCIATE Gender Identity Not on file Sexual Orientation [...] /Epidu ral N Livin g 8 9 MARY HENDERSON Jenni fer Alice, MD Delivery Location:[facility] Main C ampus ([facility] L AND D PROCEDURE) 2023 Term 37w 5d 0h 01m 0h 01m 3.09 kg (6 lb 13 oz) F C-Sec tion Combin ed Spinal /Epidu ral N Livin g 7 8 Stacie Baker i, MD Complications:None Delivery Location:[facility] Main C ampus ([facility] L AND D PROCEDURE) Comments G1 - spontaneous in 2014. C- section for failure to progress. [id number] with elevated blood pressure in clinic and now diagnosis of gestational hypertension. EBL 600 mL. No complications. Last Filed Vital Signs Vital Sign Reading Time Taken Comments Blood Pressure 129/91 12/27/2024 3:45 PM CDT Pulse 76 07/01/2024 10:06 AM HEALTH CENTER ASSOCIATE Temperature 36.4 C (97.5 F) 05/20/2024 6:15 AM HEALTH CENTER ASSOCIATE Respiratory Rate 18 05/20/2024 6:15 AM HEALTH CENTER ASSOCIATE Oxygen Saturation 98% 07/01/2024 10:06 AM HEALTH CENTER ASSOCIATE Inhaled Oxygen Concentration - - Weight 84.4 kg (186 lb) 12/27/2024 3:45 PM CDT Height 160 cm (5' 3) 12/27/2024 3:45 PM CDT Body Mass Index 32.95 12/27/2024 3:45 PM CDT Plan of Treatment Health Maintenance Due Date Last Done Comments Varicella Vaccines (1 of 2 - 13+ 2-dose series) 2000 Hepatitis B Screening 2005 HPV Vaccines (1 - 3-dose SCDM series) 2014 Cervical Cancer Screening 10/23/2024 10/24/2023, Influenza Vaccine (#1) 2025 , 06/14/2022, 04/02/2020, Additional history exists Depression Screening 07/01/2025 07/01/2024 Regular Well Visit/Exam 18-64 11/27/2025 11/27/2024, 08/13/2018 DTaP/Tdap/Td Vaccine (4 - Td or Tdap) 03/14/2034 03/14/2024, 11/17/2022, 12/01/2014 Hepatitis C Screening Completed 10/30/2023, 022 Pneumococcal vaccine <65 Aged Out No longer eligible based on patient's age to complete this topic Procedures Procedure Name Priority Date/Time Associated Diagnosis Comments HEPATITIS C ANTIBODY Routine 10/30/2023 7:03 AM CDT Encounter for supervision of elderly multigravida in first trimester, antepartum HIGH RISK HPV DNA DETECTION WITH GENOTYPING Routine 10/24/2023 10:12 AM CDT Supervision of other normal , antepartum from Last 3 Months or Most Recently Relevant to Health Maintenance Results * Hepatitis C antibody Blood (10/30/2023 7:03 AM CDT) Hep C Ab NON-REACTI VE NON-REACT CHELLE [facility] Comment: HCV antibody was non-reactive. There is no laboratory evidence of HCV infection. In most cases, no further action is required. However, if recent HCV exposure is suspected, a test for HCV RNA (test code 10623) is suggested. For additional information please refer to http://education.Wedding Spot.Transphorm/faq/NTS41m1 (This link is being provided for informational/ educational purposes only.) Blood 10/30/2023 7:03 AM CDT 10/30/2023 7:04 AM CDT Jared Jonas MD LAB MICROBIOLOGY - GENERA L ORDERABLES Final Result [facility] [id number] [facility] [place] [address] * High Risk HPV DNA Detection with Genotyping (Molecular component) (10/24/2023 10:12 AM CDT) Pathologist [facility] HPV HR 16 Not Detected Not Detected [facility] HPV HR 18 Not Detected Not Detected [facility] HPV HR Non 16/18 Not Detected Not Detected [facility] Comment: Interpretive Data Nucleic acid amplification for detection of high-risk Human Papilloma virus (HPV) is performed by the Micth Rachel 6800 HPV test. This assay specifically [...] this test have been verified by the [facility] Molecular Infectious Disease laboratory. Correlate with separately reported cytology results, as applicable. Interpretive data last revised 22 Endocervical 10/24/2023 10:1 2 AM CDT 10/25/2023 12:08 PM CDT Narrative [facility] - 10/26/2023 1:20 AM CDT Clinical history and diagnosis->Remote history of abnormal Number of vials->1 Testing type->Screening Last menstrual period (date if known)->08/21/23 Menstrual status-> Jared Jonas MD LAB BODY FLUIDS AND STOOL S ORDERABLES Final Result [facility] Department [place] [address] [facility] from Last 3 Months or Most Recently Relevant to Health Maintenance Insurance [facility] CHOICE PLUS [facility] ACCESS CHOICE ANTHEM ACCESS CHOICE Advance Directives For more information, please contact: [phone] * Full Code (Latest Code Status on [...] 7:51 AM 07/13/2020 2:28 PM Care Teams Golf Club Manager Relationship Specialty [place] [address] [address] PCP - General Family Medicine 07/28/21
--- OUTSIDE RECORDS SUMMARY | 2025-01-31 18:53 | XMS_ITS | Encounter Summary ---
Author Organization [facility] Address [address] [place] [address] Care Team Providers Care Camp Director Name Role Phone Jael Thomas Primary Care Provider [phone] Madhuri KohliC Primary Care Provider [phone] Annetta Aceves MD Primary Care Provider [phone] Encounter Details Date Type Department Care Team (Late st Contact Info) Description 12/30/2019 Prep for Procedure [facility] [address] [place] [id number] Galo Irene MD Social History Tobacco Use [...] Master's degree (e.g., MA, MS, Omar, MEd, INDOOR PLANT TECHNICIAN, GARFIELD) 01/28/2019 Comments No Sex and Gender [...] Rule Out 09/10/2020 09/10/2020 09/10/2020 12:36 PM CHILD SUPPORT CASE OFFICER COVID-19 Rule Out 09/10/2020 09/10/2020 09/10/2020 12:37 PM CHILD SUPPORT CASE OFFICER COVID-19 Rule Out 09/10/2020 09/10/2020 09/11/2020 2:10 PM CHILD SUPPORT CASE OFFICER documented as of this encounter Care Teams Camp Director Relationship Specialty Start Date End Date Jael Thomas APNP [id number] [address] PCP - General Nurse Practitioner Family 01/28/19 807/25 Madhuri Kohli PA-C [address] [facility] [address] [place] [address] PCP - General PHYSICIAN WEIGHT INSPECTOR 02/21/23 09/25/24 [place] [address] [facility] [address] [place] [address] PCP - General INTERNAL MEDICINE 09/26/24 documented as of this encounter
--- OUTSIDE RECORDS SUMMARY | 2025-01-31 18:53 | XMS_ITS | Encounter Summary ---
Author Organization [facility] Address [address] [place] [address] Care Team Providers Care Information Systems Director Name Role Phone Jael Thomas Primary Care Provider [phone] Madhuri KohliC Primary Care Provider [phone] Annetta Aceves MD Primary Care Provider [phone] Encounter Details Date Type Department Care Team (Late st Contact Info) Description 09/13/2020 Dizko Samurai Message [facility] [address] [place] [address] Martina Morris, INTRANET DEVELOPER Test Results Social History Tobacco Use Types [...] Master's degree (e.g., MA, MS, Omar, MEd, FISHERIES OFFICER, GARFIELD) 01/28/2019 Comments No Sex and Gender [...] COVID-19? No / Unsure 09/03/2020 9:05 AM DIRECTOR OF REHABILITATION AND WELLNESS documented as of this encounter Plan of Treatment Not on file documented as of this encounter Visit Diagnoses Not on filedocumented in this encounter Care Teams Information Systems Director Relationship Specialty Start Date End Date Jael Thomas APNP [address] [address] PCP - General Nurse Practitioner Family 01/28/19 807/25 Madhuri Kohli, PAKatieC [address] [address] PCP - General PHYSICIAN SMALL PARTS ASSEMBLER 02/21/23 09/25/24 [place] [address] [address] PCP - General INTERNAL MEDICINE 09/26/24 documented as of this encounter
--- OUTSIDE RECORDS SUMMARY | 2025-01-31 18:53 | XMS_ITS | Referral Summary ---
Author Organization [facility] Address [address] [place] [id number] Care Team Providers Care Aircraft Parts Assembler Name Role Phone Jael Thomas NP Primary Care Provider Encounters Date Type Department Care Team Description 12/27/2024 3:30 PM CDT Office Visit [facility] Obstetrics and Gynecology [address] [place] [address] 7th Floor [address] [place] [address] Marion Rayo MD Abnormal uterine bleeding (AUB) (Primary Dx) 11/27/2024 3:00 PM CDT Office Visit [facility] Obstetrics and Gynecology [address] [place] [address] 7th [address] [place] [phone] Mirta Landaverde NP Well woman exam (Primary Dx); Healthcare maintenance; Menorrhagia with regular cycle from Last 3 Months Allergies No known active allergies Medications norethindrone [...] Age: 36w2d Referring Provider: Justina Primary OB: M Latin Dance Instructor: Pending Diagnosis: Tri 21 by amnio, CHD: balanced CAVC RISK Level YELLOW Testing Twice weekly testing Completed Genetics: Amnio - Tri 21 Ultrasound reviewed with patient by: Moni Melgar 05/07 Completed Consults: NBM, cardiology Delivery Plan: C/S 05/28 Disposition: NICU Treatment Plan: Next Appointment: 05/14 - M 05/21 - M Problem Noted Date Diagnosed Date Abnormal uterine [...] # Disposition: Follow up task sent to [facility] scheduling pool for appointments in 2 and 6 weeks. They are enrolled in remote blood pressure monitoring for their BP check. Desires discharge home tomorrow. Service Coverage These phones are service phones and carried 23/01 in house: R1 (first call) [phone] R1 alt (second call) [phone] R4 (Chief) [phone] Polyhydramnios in third trim ramy, not applicable or unspecified fetus 05/07/2024 06/04/20 24 Overview (05/14/2024): Mild poly- stable 05/14/2024 28cm S/p counseling Pt knows to present immediately with SROM Labor precautions reviewed BPP in 1 week Assessment & Plan (05/14/2024 10:43 AM ALLERGY SPECIALIST): Again reviewed risks of polyhydramnios include contractions, SROM, malposition or umbilical cord prolapse. Assessment & Plan (05/07/2024 8:56 AM ALLERGY SPECIALIST): Stable 05/07/2024 Supervision of other high ri sk , antepartum 04/30/2024 08/27/2024 Feeling exhausted 04/02/2024 06/04/2024 Overview (04/25/2024): Continues to feel exhausted. She was seen in the [facility] with a negative workup on 02/25. 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 RN: Fariba Murry [x] Full [facility] care [x] Blue Team Referring Provider: Mary Bush [phone] [] or Medicare Insurance [x] Dating Criteria: [...] 04/30/2024 [x] Method of feeding: breast [x] Latin Dance Instructor: [x] PP Depression Discussed: AMA (advanced maternal [...] dx 12/20/23 - plan to transfer to [facility] [x] Initial BMI: 30.72 [x] Labs: Lab Results Component Value Date ABORH A Positive 01/12/2023 IDCOOMB Negative 01/12/2023 [id number] Nonreactive 01/12/2023 LABRPR NON-REACTIVE 10/30/2023 RUBELIGG 0.92 [...] (10/13/2022): Added automatically from request for surgery [id number] Encounter for maternal care for low transverse scar from previous delivery 12/25/2018 02/23/2023 Overview (10/13/2022): Added automatically from request for surgery [id number] Added automatically from request for surgery [id number] Added automatically from request for surgery [id number] Supervision of other normal , antepartum 06/24/2014 [...] @ 36wks Girl Piper , ped in [place], [place] Teaching: [x] 1st visit [x] 28-30 week [x] 36 week GBS carrier 06/05/2014 02/23/2023 Overview (10/13/2022): Urine Positive GBS 06/2014 Overview: Urine Positive GBS 06/2014 Urine Positive GBS 06/2014 Immunizations Immunization Administration Dates Next Due Flucelvax [...] drink = 0.6 oz pur e alcohol) [facility] Utilities Answer Date Recorded In the past 12 months has e [employer], gas, oil, or water [employer] threatened to shut off services in your [...] often do you attend chur ch or episcopal services? Never 05/18/2024 Do you belong to any clubs o r organizations such as mandaeism groups, unions, fraternal or athletic groups, or [...] place to sleep or slept in a fci (including now)? No 01/13/2023 [place] Depression Scale Answer Date Recorded [place] Depression Scale Total 1 07/01/2024 The thought [...] any time in the past 12 m [facility], were you homeless or living in a fci (including now)? 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 Not on file Not on file Not on file Last Filed Vital Signs Vital Sign Reading Time Taken Comments Blood Pressure 129/91 12/27/2024 3:45 PM CDT Pulse 76 07/01/2024 10:06 AM ALLERGY SPECIALIST Temperature 36.4 C (97.5 F) 05/20/2024 6:15 AM ALLERGY SPECIALIST Respiratory Rate 18 05/20/2024 6:15 AM ALLERGY SPECIALIST Oxygen Saturation 98% 07/01/2024 10:06 AM ALLERGY SPECIALIST Inhaled Oxygen Concentration - - Weight 84.4 kg (186 lb) 12/27/2024 3:45 PM CDT Height 160 cm (5' 3) 12/27/2024 3:45 PM CDT Body Mass Index 32.95 12/27/2024 3:45 PM CDT Plan of Treatment Not on file Procedures [...] Hep C Ab NON-REACTI VE NON-REACT CHEL[facility] Comment: HCV antibody was non-reactive. There is no laboratory evidence of HCV infection. In most cases, no further action is required. However, if recent HCV exposure is suspected, a test for HCV RNA (test code 61476) is suggested. For additional information please refer to http://education.[employer]dom[employer]/faq/TFI66j9 (This link is being provided for informational/ educational purposes only.) Blood 10/30/2023 7:03 AM CDT 10/30/2023 7:04 AM CDT Jared Jonas MD LAB MICROBIOLOGY - GENERA L ORDERABLES Final Result [facility] [address] [place] [address] * High Risk HPV DNA Detection with Genotyping (Molecular component) (10/24/2023 10:12 AM CDT) HPV HR 16 Not Detected Not Detected [facility] HPV HR 18 Not Detected Not Detected [facility] HPV HR Non 16/18 Not Detected Not Detected [facility] Comment: Interpretive Data Nucleic acid amplification for [...] this test have been verified by the [facility] Molecular Infectious Disease laboratory. Correlate with separately reported cytology results, as applicable. Interpretive data last revised 22 Endocervical 10/24/2023 10:1 2 AM CDT 10/25/2023 12:08 PM CDT Narrative [facility] - 10/26/2023 1:20 AM CDT Clinical history and diagnosis->Remote history of abnormal Number of vials->1 Testing type->Screening Last menstrual period (date if known)->08/21/23 Menstrual status-> Jared Jonas MD LAB BODY FLUIDS AND STOOL S ORDERABLES Final Result [facility] Department [place] [address] [facility] from Last 3 Months or Most Recently Relevant to Health Maintenance Insurance [facility] CHOICE PLUS ANTHEM ACCESS CHOICE Un[employer] ACCESS CHOICE Advance Directives For more information, please contact: [phone] * Full Code (Latest Code Status on [...] 7:51 AM 07/13/2020 2:28 PM Care Teams Aircraft Parts Assembler Relationship Specialty [place] [id number] [address] PCP - General Family Medicine 07/28/21
--- OUTSIDE RECORDS SUMMARY | 2025-01-31 18:53 | XMS_ITS | Clinical Summary ---
Author Organization [facility] Address [facility] [place] [address] Care Team Providers Care Economics Consultant Name Role Phone Annetta Aceves MD Primary Care Provider [phone] Allergies No known active allergies Medications nabumetone (RELAFEN) 500 MG tabletIndicatio ns:Bilateral plantar fasciitis Take 1 tablet (500 mg total) by mouth 2 (two) times daily. 60 tablet 1 Active Additional Information Patient not taking.Reported on 09/29/2023 Active Problems Problem Noted Date Diagnosed Date Gallstones 12/24/2019 Overview (12/24/2019): Added automatically from request for surgery [id number] Encounter for maternal care for low transverse scar from previous delivery ([facility]) 12/25/2018 Overview (11/23/2020): Added automatically from request for surgery [id number] Added automatically from request for surgery [id number] GBS carrier 06/05/2014 Overview (11/23/2020): Overview: Urine Positive GBS 06/2014 Urine Positive GBS 06/2014 Comments Yes Resolved Problems Problem Noted Date Diagnosed Date Resolved Date Skin rash 01/29/2021 02/17/2022 Immunizations Immunization Administration Dates Next Due COVID-19 Vaccine (Generic) [...] Master's degree (e.g., MA, MS, Omar, MEd, OUTSIDE CONTRACTOR SALES, [employer]) 01/28/2019 Comments Yes Sex and Gender [...] 11:10 AM CDT Height 160.7 cm (5' 3.25) 09/29/2023 11:10 AM C DT Body Mass Index 30.79 09/29/2023 11:10 AM CDT Plan of Treatment Health Maintenance Due Date Last Done Comments Hepatitis C 2005 Hepatitis B Vaccines (1 of 3 - 19+ 3-dose series) 2006 HPV Vaccines (1 - 3-dose SCD M series) 2014 Annual Physical 11/23/2021 11/23/2020, 07/24/2019 COVID-19 Vaccine (1 - 2023-2 5 season) 2024 PHQ-2 (Physician [place]) 07/03/2024 08/28/2023 Cervical Cancer Screening Pa p Smear (Age 30 to 64) Every 3 Years 06/14/2025 06/14/2022, 11/23/2020, 06/04/2014 Cervical Cancer Screening Pa p with HPV Testing (Age 30 to 64) Every 5 Years 06/14/2027 06/14/2022, 11/23/2020, 06/04/2014 Cervical Cancer Screening wi th HPV 06/14/2027 DTaP, Tdap and Td Vaccines ( 3 - Td or Tdap) 11/17/2032 11/17/2022, 12/01/2014 RSV Immunization or 60+ Years (1 - 1-dose 75+ series) 2062 Meningococcal B Vaccine Aged Out No l onger eligible based on patient's age to complete this topic Meningococcal Vaccine Aged Out No aníbal ignacio eligible based on patient's age to complete this topic Pneumococcal Vaccine: Pediatrics (0 to 5 Years) and At-Risk Patients (6 to 49 Years) Aged Out No longer eligible b ased on patient's age to complete this topic RSV Immunizations Under 20 Months Aged Out No longer eligible b ased on patient's age to complete this topic Procedures Procedure Name Priority Date/Time Associated Diagnosis Comments THINPREP PAP W AGE BASED SCREENING PROTOCOLS Routine 11/23/2020 11:57 AM CDT Cervical cancer screening from Last 3 Months or Most Recently Relevant to Health Maintenance Results * THINPREP PAP W AGE BASED SCREENING ([facility] ONLY) (11/23/2020 11:57 AM CDT) Comment: [facility] Comment: This order for age-based cervical cancer and STI screening follows ACOG guidelines(PB 168, 140, TGU162). See individual assays for performing site location. CLINICAL INFORMATION: 7 or more years since last Pap [facility] Clinical Information: INFORMATION NOT PROVIDED [facility] Date of Last Pap INFORMATION NOT PROVIDED [facility] Previous Biopsy? INFORMATION NOT PROVIDED [facility] SOURCE (QST) Endocervix [facility] STATEMENT OF ADEQUACY: [facility] Comment: Satisfactory for evaluation. Endocervical/transformation zone component present. Age and/or menstrual status not provided PAP INTERPRETATION/RES ULTS Negative for intraepithelial lesion or malignancy. [facility] COMMENT: This Pap test has been evaluated with computer assisted technology. [facility] TRIMMING ASSEMBLER [facility] Comment: MLO, CT(ASCP) CT screening location: [place] [address] [place] [address] REVIEW TRIMMING ASSEMBLER: [facility] Comment: MEF, CT(ASCP) CT screening location: [place] [address] [place] [address] COMMENT: [facility] Comment: EXPLANATORY NOTE: The Pap is [...] HPV MRNA E6/E7 Not Detected Not Detected [facility] Comment: Methodology: Veterinary Pharmacologist-Mediated Amplification This assay detects E6/E7 viral messenger RNA (mRNA) from 14 high-risk HPV types (16,18,31,33,35,39,45,51,52,56,58,59,66,68). The analytical performance characteristics of this assay have been determined by [employer]. The modifications have not been cleared or approved by the FDA. This assay has been validated pursuant to the CLIA regulations and is used for clinical purposes. For additional information, please refer to http://education.Vestec.[employer]/faq/MKM066k3 (This link if provided for information/ educational purposes only.) 11/23/2020 11:5 7 AM CDT 11/24/2020 12:53 AM CDT Carmela MONTES PATHOLOGY/CYTOLOGY ORDERABLE S Final Result [facility] [address] [place] [address] [facility] [address] [place] [address] from Last 3 Months or Most Recently Relevant to Health Maintenance Insurance [facility] Care Teams Economics Consultant Relationship Specialty Start [place] [address] [facility] [address] [place] [id number] PCP - General INTERNAL MEDICINE 09/26/24
[2025-01-31 19:00] VITALS: BP 163/87; PULSE 84; RESP 16; TEMP 36.5; O2SAT 100
--- NOTE | 2025-01-31 19:10 | ED.LOWEXIN ---
HPI - Extremity Injury (Lower) General Chief Complaint: Extremity Injury, Lower Stated Complaint: rt foot injury Time Seen by Provider: 01/31/25 19:10 Source: patient Mode of arrival: ambulatory Limitations: no limitations History of Present Illness HPI Narrative: 39-year-old female presents with complaint of pain to right great toe and right foot. Patient slipped down stairs and states her body weight landed on her right foot. Pain worse when ambulatory. All systems reviewed and negative except as noted above. Related Data Home Medications ?Medication ?Instructions ?Recorded ?Confirmed ?Last Taken ?Type norethindrone acetate 5 mg tablet mg 01/31/25 Unknown History (Иван) Allergies Allergy/AdvReac Type Severity Reaction Status Date / Time No Known Allergies Allergy Verified 01/31/25 19:00 Review of Systems Review of Systems: CONSTITUTIONAL: Denies fever, chills, or sweats. EYES: Denies visual changes, redness, or discharge. ENT: Denies rhinorrhea, congestion, sore throat, or otalgia. CARDIOVASCULAR: Denies chest pain, palpitations, or edema. RESPIRATORY: Denies cough or dyspnea. GASTROINTESTINAL: Denies abdominal pain, nausea, vomiting, or diarrhea. GENITOURINARY: Denies dysuria or hematuria. SKIN: Denies rash or itching. MUSCULOSKELETAL: Reports right foot pain NEUROLOGIC: Denies headache, numbness, or weakness. PSYCHIATRIC: Denies anxiety or depression. All other systems reviewed are negative, except as documented in HPI. [facility] Past Medical History Medical History (Updated 01/31/25 @ 19:39 by Savanna Escobar NP) Acid reflux Surgical History Surgical History No pertinent past surgical history Social History Social History Smoking status: Never smoker Alcohol intake: never Substance use: never Gender identity (if verbalized by the patient): Female Comments At time of signature, agree with nursing past medical, surgical, social and family history. There is no relevant family history pertinent to the presenting complaint. Exam Narrative: GENERAL: This is a well-nourished, well-developed patient, in no apparent distress. HEAD: normocephalic, atraumatic. EYES: PERRL. Sclera clear/white. Vision is grossly intact. EARS: External ears normal NOSE: External nose normal NECK: Neck supple, non-tender without lymphadenopathy, masses or thyromegaly. CARDIOVASCULAR: Regular rate and rhythm without murmurs, gallops, or rubs. RESPIRATORY: Clear to auscultation. Breath sounds equal bilaterally. No wheezes, rales, or rhonchi. SKIN: warm, Dry, intact with no suspicious lesions or rash, good texture and turgor. NEURO: awake, alert, and oriented to person, place and time. There were no obvious focal neurologic abnormalities. EXTREMITIES: tenderness to right 1st MCP joint and proximal Flomax. Mild swelling noted. No deformity. Range of motion decreased due to pain. Distal neurovascularly intact. Course Course Level of Care: Express Care Visit Vital Signs Vital signs: Vital Signs Temperature 36.5 C 01/31/25 19:00 Pulse Rate 84 01/31/25 19:00 Respiratory Rate 16 01/31/25 19:00 Blood Pressure 163/87 H 01/31/25 19:00 Pulse Oximetry 100 01/31/25 19:00 Oxygen Delivery Room Air 01/31/25 19:00 Temperature 36.5 C 01/31/25 19:00 Pulse Rate 84 01/31/25 19:00 Respiratory Rate 16 01/31/25 19:00 Blood Pressure 163/87 H 01/31/25 19:00 Pulse Oximetry 100 01/31/25 19:00 Oxygen Delivery Room Air 01/31/25 19:00 Reviewed MDM - Extremity Injury (Lower) MDM Narrative Medical decision making narrative: x-ray of right foot negative for fracture. Discussed results with patient. Patient reports a lot of pain when ambulatory. Attempted a postop shoe but stated it did not help. Recommend ice, elevation, rest. Differential Diagnosis Differential diagnosis: Likely fracture of toe and other ( Foot fracture, foot sprain, foot contusion) Discharge Plan Discharge Clinical Impression: Sprain of foot, right Contusion of foot, right Qualifiers: Encounter type: initial encounter Qualified Code(s): S90.31XA - Contusion of right foot, initial encounter Patient Disposition: Home Condition: Stable Instructions: Contusion in Adults (ED) Additional Instructions: The x-ray of your right foot was negative for fracture. Take ibuprofen or Tylenol every 6-8 hours as needed for pain. Elevate when at rest. Apply ice as needed for pain. Follow-up with your doctor if pain not improving. Patient Language: Fijian Prescriptions: No Action norethindrone acetate [[place]] 5 mg tablet Follow-up/Referrals: PHYSICIAN,WOOD DRILL OPERATOR [Primary Care Provider] - Time of Disposition: 19:39
== END 2025-01-31 19:42 | disposition home or self-care (01) ==
PROVIDERS: Emergency Provider Nurse Practitioner Family
DX: S90.31XA Contusion of right foot, initial encounter (principal); S93.601A Unspecified sprain of right foot, initial encounter; W10.9XXA Fall (on) (from) unspecified stairs and steps, initial encounter
CPT/HCPCS: 73630; 99213; G0463